=== PATIENT | female | born 1970 | race Caucasian/White ===

== ENCOUNTER 2017-05-21 15:17 | Emergency (ER) | payer MEDICAID, SELFPAY ==
[2017-05-21 15:18] VITALS: BP 144/94; PULSE 71; RESP 16; TEMP 36.3; O2SAT 97; BMI 47.8
--- NOTE | 2017-05-21 15:38 | RAD_ITS ---
STUDY: X-RAY - RIGHT KNEE REASON FOR EXAM: Female, 46 years old. Trauma, knee pain TECHNIQUE: 3 view(s) of the knee. COMPARISON: None. FINDINGS: Normal visualized distal femur. Normal visualized proximal tibia and fibula. Normal proximal tibiofibular articulation. There is mild degenerative arthrosis of the medial femorotibial compartment. There is mild degenerative arthrosis of the lateral femorotibial compartment. There is moderate degenerative arthrosis of the patellofemoral articulation. The soft tissue structures are unremarkable. RAD/Knee 3 Views IMPRESSION: Tricompartmental degenerative changes of the right knee. There is no evidence of fracture, dislocation, free intra-articular calcifications, or suprapatellar effusion. Electronically Signed: Leandro Horowitz MD at 16:53 EDT , Service support ,
--- NOTE | 2017-05-21 16:18 | RAD_ITS ---
STUDY: X-RAY - LEFT KNEE REASON FOR EXAM: Female, 46 years old. Bilateral knee pain following trauma TECHNIQUE: 3 view(s) of the knee. COMPARISON: None. FINDINGS: Status post total left knee replacement changes are seen with implants appearing in good position. There is no evidence of implant loosening or new associated fracture or dislocation. The soft tissue structures are unremarkable. RAD/Knee 3 Views IMPRESSION: Status post total left knee replacement changes seen with implants appearing in good position. There is no evidence of implant loosening or associated fracture or dislocation. Electronically Signed: Leandro Horowitz MD at 16:52 EDT , Service support ,
--- NOTE | 2017-05-21 16:31 | ED.VISSUMM ---
- ER Visit Summary Date of Service: 05/21/17 Chief Complaint: [Fall with injury to knees] History of Present Illness: The patient is a 46 F [presents to the emergency department after sustaining a fall this afternoon. Patient states that she was walking to work when she tripped over uneven sidewalk and fell injuring mostly her left knee but also her right knee. Patient is not sure if she twisted at all. Patient had to have 2 people help her up but she was able to bear some weight on her left leg. Patient denies striking her head or loss of consciousness. Patient is concerned because she has had a prior left knee replacement on left side.] Physical Examination: [HEENT-PERRLA, EOMI. Cranial nerves II through XII grossly intact. TMs clear. Mucous membranes moist. No adenopathy. Cardiovascular-regular rate and rhythm without murmur or ectopy Lungs-clear to auscultation, chest wall stable without crepitus or subcu emphysema Abdomen-normoactive bowel sounds, soft, nontender, no rebound or rigidity, no peritoneal signs. Extremities-intact ?4, normal range of motion, normal pulses, atraumatic]. Left knee-no effusion noted. No ecchymosis or bruising noted. Patient has some tenderness mostly over the proximal anterior tibia. Patient has pain with flexion extension at the knee and does not tolerate ligamentous exam. Exam also difficult due to patient's large body habitus. Valuation of the right knee-patient has some tenderness over the right knee diffusely just inferior to the patella and lateral. Again there is no ecchymosis or bruising noted or effusion. Patient has normal range of motion flexion extension of the knee and she is ligamentously stable on the right. Test Results: [Rays of the right and left knees were obtained. On my interpretation there are no fractures.] Emergency Department Course and Treatment: [Patient will be placed in a knee immobilizer with the left knee and given crutches. Patient was given 1 dose of OxyIR in the emergency department.] Treatment Plan: [Patient will be referred to orthopedic physician distribution dispatcher and will be given a prescription for 12 Percocet for severe pain.] Disposition: [Discharged to home in stable condition.] Impression: [Mechanical fall Contusion bilateral knees] This note was generated with [employer] dictation software. It may contain incorrect words, spelling, and punctuation that were not noted in review of the chart prior to signing ED Disposition - Plan for ED Patient: Chief Complaint: Lower Extremity Injury Referrals: Care Physician,No Primary [Primary Care Provider] -
--- NOTE | 2017-05-21 16:35 | ED.DCSUM_ITS ---
- ER Visit Summary Date of Service: 05/21/17 Chief Complaint: [Fall with injury to knees] History of Present Illness: The patient is a 46 F [presents to the emergency department after sustaining a fall this afternoon. Patient states that she was walking to work when she tripped over uneven sidewalk and fell injuring mostly her left knee but also her right knee. Patient is not sure if she twisted at all. Patient had to have 2 people help her up but she was able to bear some weight on her left leg. Patient denies striking her head or loss of consciousness. Patient is concerned because she has had a prior left knee replacement on left side.] Physical Examination: [HEENT-PERRLA, EOMI. Cranial nerves II through XII grossly intact. TMs clear. Mucous membranes moist. No adenopathy. Cardiovascular-regular rate and rhythm without murmur or ectopy Lungs-clear to auscultation, chest wall stable without crepitus or subcu emphysema Abdomen-normoactive bowel sounds, soft, nontender, no rebound or rigidity, no peritoneal signs. Extremities-intact ?4, normal range of motion, normal pulses, atraumatic]. Left knee-no effusion noted. No ecchymosis or bruising noted. Patient has some tenderness mostly over the proximal anterior tibia. Patient has pain with flexion extension at the knee and does not tolerate ligamentous exam. Exam also difficult due to patient's large body habitus. Valuation of the right knee -patient has some tenderness over the right knee diffusely just inferior to the patella and lateral. Again there is no ecchymosis or bruising noted or effusion. Patient has normal range of motion flexion extension of the knee and she is ligamentously stable on the right. Test Results: [Rays of the right and left knees were obtained. On my interpretation there are no fractures.] Emergency Department Course and Treatment: [Patient will be placed in a knee immobilizer with the left knee and given crutches. Patient was given 1 dose of OxyIR in the emergency department.] Treatment Plan: [Patient will be referred to orthopedic physician semiconductor wafers etcher stripper and will be given a prescription for 12 Percocet for severe pain.] Disposition: [Discharged to home in stable condition.] Impression: [Mechanical fall Contusion bilateral knees] This note was generated with [employer] dictation software. It may contain incorrect words, spelling, and punctuation that were not noted in review of the chart prior to signing ED Disposition - Plan for ED Patient: Chief Complaint: Lower Extremity Injury Referrals: Care Physician,No Primary [Primary Care Provider] -
--- NOTE | 2017-05-21 16:35 | ED.DEP ---
ED Disposition - Plan for ED Patient: Chief Complaint: Lower Extremity Injury Instructions: ED Contusion Lower Ext, ED Sprain Knee, ED Mechanical Fall Prescriptions: Oxycodone HCl/Acetaminophen [Percocet 5/325] 1 tab PO Q6H PRN PRN 3 Days #12 tab PRN Reason: Pain Referrals: Care Physician,No Primary [Primary Care Provider] - Lonnie Bolden MD [STAFF PHYSICIAN] - 5-7 Days
[2017-05-21] MEDS: oxyCODONE 5 MG Tablet PO (17:08)
== END 2017-05-21 17:39 | disposition home or self-care (01) ==
PROVIDERS: Emergency Provider Emergency Medicine
DX: S80.02XA Contusion of left knee, initial encounter (principal); S80.01XA Contusion of right knee, initial encounter; W01.0XXA Fall on same level from slipping, tripping and stumbling without subsequent striking against object, initial encounter; Y93.01 Activity, walking, marching and hiking; Y92.480 Sidewalk as the place of occurrence of the external cause; Y99.9 Unspecified external cause status; M19.90 Unspecified osteoarthritis, unspecified site; Z86.73 Personal history of transient ischemic attack (TIA), and cerebral infarction without residual deficits; Z96.652 Presence of left artificial knee joint; Z90.710 Acquired absence of both cervix and uterus
CPT/HCPCS: 73562; 99283

== ENCOUNTER 2017-06-19 12:34 | Emergency (ER) | payer MEDICAID, SELFPAY ==
[2017-06-19 12:35] VITALS: BP 135/104; PULSE 82; RESP 20; TEMP 37.1; O2SAT 97; BMI 47.8
--- NOTE | 2017-06-19 13:05 | ED.DCSUM_ITS ---
- ER Visit Summary Date of Service: 06/19/17 Chief Complaint: Asthma attack History of Present Illness: The patient is a 46 F has a history of asthma, CVA, reflex sympathetic dystrophy and PTSD and anxiety. Per her friend is given history patient was laughing yesterday which exacerbated her asthma attack. No hemoptysis. No history of PE or DVT. No fever. Physical Examination: Well-appearing middle-age female. BMI is 47. She does not look septic toxic she is in no distress. On room air she is 97%. She has a rescue dog sitting on her chest. HEENT exam unremarkable moist mucous membranes. Posterior pharynx unremarkable. Neck nontender no lymphadenopathy. Lungs good auscultation bilaterally. She is dry cough. There is no rales no rhonchi no wheezing. Breath sounds are equal and symmetrical. Heart regular rhythm rate 80s. Abdomen soft nontender normal bowel sounds no peritoneal signs. She is moving all 4 extremities. Calves are nontender without edema or cords. Neurologically she is awake she is answering questions. She is following commands. Test Results: None Emergency Department Course and Treatment: A large part of this is the patient' s anxiety. She is not actively wheezing. She will be given 1 DuoNeb aerosol treatment and oral prednisone. Then reassess. Treatment Plan: Is doing well at 1435. Be discharged home. Nebulizer machine at home. She also placed on prednisone 40 g a day for 1 week. Disposition: Discharge Impression: Acute anxiety Asthma flare This note was generated with [employer] dictation software. It may contain incorrect words, spelling, and punctuation that were not noted in review of the chart prior to signing ED Disposition - Plan for ED Patient: Chief Complaint: Shortness of Breath Referrals: Care Physician,No Primary [Primary Care Provider] -
[2017-06-19 13:10] VITALS: PULSE 95; RESP 20
[2017-06-19] MEDS: Ipratropium/Albuterol Sulfate 3 ML AMPUL.NEB INHALATION (13:10)
[2017-06-19] MEDS: predniSONE 20 MG Tablet 40 MG PO (13:15)
--- NOTE | 2017-06-19 14:40 | ED.DEP ---
ED Disposition - Plan for ED Patient: Disposition: Home or Assisted Living Chief Complaint: Shortness of Breath Instructions: ED Bronchitis Asthmatic Prescriptions: Prednisone [Deltasone] 40 mg PO DAILY 7 Days tab Referrals: Care Physician,No Primary [Primary Care Provider] - 3-5 Days if not improving Additional Instructions: Prednisone 40 g a day for 1 week. Usual nebulizer as needed. Follow-up with your doctor as needed.
[2017-06-19 14:49] VITALS: BP 147/109; PULSE 98; RESP 16; O2SAT 98; O2SAT 99
--- NOTE | 2017-06-19 14:56 | ED.DEP ---
ED Disposition - Plan for ED Patient: Disposition: Home or Assisted Living Chief Complaint: Shortness of Breath Instructions: ED Bronchitis Asthmatic Prescriptions: Prednisone [Deltasone] 40 mg PO DAILY 7 Days tab Referrals: Care Physician,No Primary [Primary Care Provider] - 3-5 Days if not improving Additional Instructions: Prednisone 40 mg a day for 1 week. Usual nebulizer as needed. Follow-up with your doctor as needed.
== END 2017-06-19 15:06 | disposition home or self-care (01) ==
PROVIDERS: Emergency Provider Emergency Medicine
DX: F41.9 Anxiety disorder, unspecified (principal); J45.901 Unspecified asthma with (acute) exacerbation; G90.50 Complex regional pain syndrome I, unspecified; F43.10 Post-traumatic stress disorder, unspecified; X58.XXXA Exposure to other specified factors, initial encounter; Y93.9 Activity, unspecified; Y92.9 Unspecified place or not applicable; Y99.9 Unspecified external cause status; Z79.899 Other long term (current) drug therapy; Z86.73 Personal history of transient ischemic attack (TIA), and cerebral infarction without residual deficits
CPT/HCPCS: 94640; 99282

== ENCOUNTER 2017-09-02 13:01 | Emergency (ER) | payer MEDICAID, SELFPAY ==
[2017-09-02 13:04] VITALS: BP 124/86; PULSE 104; PULSE 95; RESP 17; RESP 20; TEMP 36.7; O2SAT 97; O2SAT 99; BMI 50.3
[2017-09-02 13:30] LABS: Bedside Glucose 83 mg/dL (70-110)
--- NOTE | 2017-09-02 14:04 | RAD_ITS ---
STUDY: X-RAY CHEST REASON FOR EXAM: Female, 46 years old. Rib pain following a fall. TECHNIQUE: AP and lateral views of the chest. COMPARISON: None. FINDINGS: The lungs are clear and expanded. There is no demonstrated pleural abnormality. Normal size heart. Normal mediastinum and you. Normal visualized pulmonary arteries. Normal visualized aortic arch and descending thoracic aorta. Normal visualized thoracic spine. Normal visualized ribs, clavicles, and shoulders. There is no demonstrated abnormality of the visualized soft tissue structures of the upper abdomen. RAD/Chest PA and Lateral IMPRESSION: Normal x-ray examination of the chest. Electronically Signed: Hayden Petersen MD at 15:06 EDT Tel [phone], Service support ,
--- NOTE | 2017-09-02 14:04 | RAD_ITS ---
STUDY: X-RAY - LEFT ELBOW REASON FOR EXAM: Female, 46 years old. Left elbow pain following a fall. TECHNIQUE: 3 view(s) of the elbow. COMPARISON: None. FINDINGS: Normal visualized humerus, radius and ulna. Normal radiocapitellar and ulnotrochlear articulations. The soft tissue structures are unremarkable. RAD/Elbow min 3 Views IMPRESSION: Normal x-ray examination of the elbow. Electronically Signed: Hayden Petersen MD at 14:51 EDT Tel [phone], Service support ,
[2017-09-02 14:13] VITALS: BP 151/93; PULSE 90; RESP 18; O2SAT 98
[2017-09-02] MEDS: Morphine 4 MG/ML Syringe IV (14:15)
[2017-09-02] MEDS: Ondansetron 4 MG/2 ML Vial IV (14:15)
--- NOTE | 2017-09-02 14:30 | RAD_ITS ---
STUDY: X-RAY - LEFT ANKLE REASON FOR EXAM: Female, 46 years old. Left ankle pain following a fall. TECHNIQUE: 4 view(s) of the ankle. COMPARISON: None. FINDINGS: Normal visualized distal tibia and fibula. Normal medial and lateral malleoli. Normal tibiotalar articulation and ankle mortise. Normal visualized talus and calcaneus. The visualized subtalar, talonavicular, calcaneocuboid and tarsal articulations are normal. Mild degree of medial soft tissue swelling. RAD/Ankle min 3 Views IMPRESSION: Mild degree of medial soft tissue swelling. No fracture is seen. Electronically Signed: Hayden Petersen MD at 15:05 EDT Tel [phone], Service support ,
--- NOTE | 2017-09-02 15:35 | ED.VISSUMM ---
- ER Visit Summary Date of Service: 09/02/17 Chief Complaint: Left elbow and left ankle pain History of Present Illness: The patient is a 46 F complaining of left elbow and left ankle pain after mechanical fall today she tripped over her flip flop. She is also complaining of left chest wall pain. No head injury. No neck pain. No loss of consciousness. Physical Examination: Morbidly obese female who is in bed. She has no signs of head injury or head trauma. She has no C-spine tenderness. She has some left sided chest wall tenderness but clear lungs. Soft abdomen, nontender. She has tenderness over her left elbow but full range of motion. She has tenderness over the left ankle but no edema, full range of motion neurovascularly intact. Test Results: X-rays of the chest, ankle and elbow are negative. Emergency Department Course and Treatment: Patient requesting a walking boot for her ankle sprain. I tried to educate her about ankle sprains but she told me she has ankle sprains and she disagreed about my treatment plan. She demanded a walking boot. I will comply. Apparently there is an hour delay between her arrival and her getting her analgesia, we were quite busy, but she is quite angry about it. I try to plicate her, but she started screaming to the point where it became quite threatened, luckily she did not get out of bed quite easily I thought for sure she would hit me. I had security involved. I am unsure where this anger came from or why. However I will discharge to follow-up with PCP. Disposition: Charged Impression: Sprain. Elbow contusion. Chest wall contusion This note was generated with [employer] dictation software. It may contain incorrect words, spelling, and punctuation that were not noted in review of the chart prior to signing ED Disposition - Plan for ED Patient: Chief Complaint: Fall Referrals: Liana Andrade DO [Primary Care Provider] -
--- NOTE | 2017-09-02 15:41 | ED.DCSUM_ITS ---
- ER Visit Summary Date of Service: 09/02/17 Chief Complaint: Left elbow and left ankle pain History of Present Illness: The patient is a 46 F complaining of left elbow and left ankle pain after mechanical fall today she tripped over her flip flop. She is also complaining of left chest wall pain. No head injury. No neck pain. No loss of consciousness. Physical Examination: Morbidly obese female who is in bed. She has no signs of head injury or head trauma. She has no C-spine tenderness. She has some left sided chest wall tenderness but clear lungs. Soft abdomen, nontender. She has tenderness over her left elbow but full range of motion. She has tenderness over the left ankle but no edema, full range of motion neurovascularly intact. Test Results: X-rays of the chest, ankle and elbow are negative. Emergency Department Course and Treatment: Patient requesting a walking boot for her ankle sprain. I tried to educate her about ankle sprains but she told me she has ankle sprains and she disagreed about my treatment plan. She demanded a walking boot. I will comply. Apparently there is an hour delay between her arrival and her getting her analgesia, we were quite busy, but she is quite angry about it. I try to plicate her, but she started screaming to the point where it became quite threatened, luckily she did not get out of bed quite easily I thought for sure she would hit me. I had security involved. I am unsure where this anger came from or why. However I will discharge to follow -up with PCP. Disposition: Charged Impression: Sprain. Elbow contusion. Chest wall contusion This note was generated with [employer] dictation software. It may contain incorrect words, spelling, and punctuation that were not noted in review of the chart prior to signing ED Disposition - Plan for ED Patient: Chief Complaint: Fall Referrals: Liana Andrade DO [Primary Care Provider] -
--- NOTE | 2017-09-02 15:43 | ED.DCSUM_ITS ---
- ER Visit Summary Date of Service: 09/02/17 Chief Complaint: [] History of Present Illness: The patient is a 46 F [] Physical Examination: [] Test Results: [] Emergency Department Course and Treatment: [] Treatment Plan: [] Disposition: [] Impression: [] This note was generated with [employer] dictation software. It may contain incorrect words, spelling, and punctuation that were not noted in review of the chart prior to signing ED Disposition - Plan for ED Patient: Disposition: Home or Assisted Living Chief Complaint: Fall Instructions: ED Mechanical Fall Prescriptions: Naproxen [Naprosyn] 500 mg PO BID PRN #20 tab Referrals: Liana Andrade DO [Primary Care Provider] - 2 Days
[2017-09-02 16:08] VITALS: BP 137/99; PULSE 90; RESP 17
[2017-09-02 16:30] VITALS: BP 137/99; PULSE 90; RESP 17
== END 2017-09-02 16:34 | disposition home or self-care (01) ==
PROVIDERS: Emergency Provider Emergency Medicine
DX: S50.02XA Contusion of left elbow, initial encounter (principal); S20.212A Contusion of left front wall of thorax, initial encounter; S93.402A Sprain of unspecified ligament of left ankle, initial encounter; W01.0XXA Fall on same level from slipping, tripping and stumbling without subsequent striking against object, initial encounter; Y93.9 Activity, unspecified; Y92.89 Other specified places as the place of occurrence of the external cause; Y99.9 Unspecified external cause status; G90.50 Complex regional pain syndrome I, unspecified; G47.33 Obstructive sleep apnea (adult) (pediatric); F32.9 Major depressive disorder, single episode, unspecified; F41.9 Anxiety disorder, unspecified; E66.01 Morbid (severe) obesity due to excess calories; Z79.899 Other long term (current) drug therapy; Z86.73 Personal history of transient ischemic attack (TIA), and cerebral infarction without residual deficits
CPT/HCPCS: 71046; 73080; 73610; 82962; 96374; 96375; 99284; A4216; J2405

== ENCOUNTER → 2017-10-25 10:59 | Outpatient (CLI) | payer MEDICAID, SELFPAY ==
[2017-10-25 11:43] VITALS: PULSE 105; PULSE 110; PULSE 112; PULSE 116; PULSE 119; PULSE 120; PULSE 87; O2SAT 96; O2SAT 97; O2SAT 98
--- NOTE | 2017-10-28 10:01 | PCM.PSN.6M ---
PSN 6 Minute Walk Test - 6 Minute Walk Test 6 Minute Walk Test: 6 Minute Walk Test PSN:6-Minute Walk Test Start: 10/25/17 11:35 Freq: Status: Active Protocol: RESP.6MINW Document 10/25/17 11:43 TIERNEY (Rec: 10/25/17 11:46 TIERNEY [id number]) 6 Minute Walk Test Date Performed 10/25/17 Time Performed 11:20 Height 5 ft 4 in Weight: 266 lb Weight in Pounds [address]: Nishi Baldwin Assistive device used: None Pre-test Oxygen Delivery Method Room Air Pulse Ox (%) 97 Pulse Rate (60-100 beats/min) 105 H Dyspnea Summer Scale (0-10) 3 Exertion Summer Scale (6-20) 6 1st minute Oxygen Delivery Method Room Air Pulse Ox (%) 97 Pulse Rate (60-100 beats/min) 112 H 2nd minute Oxygen Delivery Method Room Air Pulse Ox (%) 98 Pulse Rate (60-100 beats/min) 119 H 3rd minute Oxygen Delivery Method Room Air Pulse Ox (%) 97 Pulse Rate (60-100 beats/min) 110 H 4th minute Oxygen Delivery Method Room Air Pulse Ox (%) 97 Pulse Rate (60-100 beats/min) 120 H 5th minute Oxygen Delivery Method Room Air Pulse Ox (%) 98 Pulse Rate (60-100 beats/min) 110 H 6th minute Oxygen Delivery Method Room Air Pulse Ox (%) 96 Pulse Rate (60-100 beats/min) 116 H Dyspnea Summer Scale (0-10) 5 Exertion Summer Scale (6-20) 14 Post-test Oxygen Delivery Method Room Air Pulse Ox (%) 98 Pulse Rate (60-100 beats/min) 87 Full Laps Walked 11 Partial Lap, Number of Tiles Walked 26 Total Distance Walked (ft) 675 - Interpretation Interpretation: The patient ambulated 675 feet over the course of 6 minutes beginning on room air without assistive devices or breaks. Pretesting oxygen saturation was noted to be 97% on room air. With ambulation, the kinga oxygen saturation was 96%. There was no significant exertional oxygen desaturation. - Recommendations Recommendations: There is no indication for the use of supplemental oxygen at this time.
== END ==
PROVIDERS: Visit Provider Nurse Practitioner Acute Care
DX: R09.02 Hypoxemia (principal)
CPT/HCPCS: 94618

== ENCOUNTER 2018-01-20 08:30 | Outpatient (RCR) | payer MEDICAID, SELFPAY ==
--- NOTE | 2018-01-20 09:05 | BH.SGPN.GN ---
Behaviors/Verbalizations/Mental Status: [] Eye contact is good. Motor activity is appropriate. Appearance is disheveled. Speech is Appropriate. Mood is depressed. Affect is flat. Thoughts are linear and logical. No evidence of psychosis. Client Response/Progress/Benefit: [] Pt spoke only when prompted. Shared with the group that she is in the program to work on symptoms related to trama. Attentive during group. Benefited from group support and encouragement. No progress noted as this is pt's first day. Will continue in IOP to stabilize mood, improve functioning, and prevent decompensation. Narrative Note: []
--- NOTE | 2018-01-20 10:15 | BH.SGPN.GN ---
Behaviors/Verbalizations/Mental Status: [] Eye contact is good. Motor activity is appropriate. Appearance is dischevled. Speech is Appropriate. Mood is depressed. Affect is flat. Thoughts are linear and logical. No evidence of psychosis. Client Response/Progress/Benefit: [] Pt did not participate in group discussion or activity. Attentive and taking notes during group discussion on the role of fear on mental health and how failure impacts motivation and mental health. Took notes on how failure often leads to thinking such as; I'm not good enough, I've let other down, failure is a reflection of who I am, and feelings of being dumb or inadequate. Attentive during further group discussion on how fear of failing can impact behaviors, choices, and mental health. Limited engagement in group today however could be expected as this was first day. Will continue in IOP to maintain safety, improve functioning, and prevent decompensation. Narrative Note: []
--- NOTE | 2018-01-20 11:16 | BH.SGPN.GN ---
Behaviors/Verbalizations/Mental Status: [Client alert and oriented. Appearance is disheveled -dressed in pajamas. Eye contact fair. Motor activity restless - distracted by service dog, fidgeting in seat, letting dog under shirt. Speech appropriate, soft. Affect congruent. mood anxious, euthymic. Thoughts linear, logical, no signs of hallucinations or delusions.] Client Response/Progress/Benefit: [Client receptive of session, engaged with encouragement and provided relevant input to the discussion despite expressed anxieties about being in a group environment. Reflected with group on barriers and supports identified in challenge activity during previous session and connected this with fear of failure in dx life. Identified how others? opinions impact ability to make decisions or can lead to second-guessing. Client willing to complete reflection worksheet aimed at identifying how fear of failure is currently holding her back as well as barriers in overcoming this. Indicated currently fears failing at ?working outside the home? and reports current barriers include: feeling stupid, past failures in attempting to do so, fear of letting others down, lack of belief in self. Benefitted from working with group to identify strategies for overcoming fear of failure. Progress in levels of engagement in group compared to previous session, as well as ability to distinguish one step she could take to begin overcoming fears. Plans to work on improving prioritizing self-care as goal for today. Recommended continued tx to encourage use of identified skills, improve sx management, and prevent decompensation. ] Narrative Note: []
--- NOTE | 2018-01-20 14:51 | BH.COMM ---
Communication Note - Communication with Client Communication Note: Therapist met with client to complete intake paperwork, build rapport, and assess for any changes in mental health status since intake interview. Client denies any significant changes, denies active SI, plan, or intent on this date.
--- NOTE | 2018-01-20 14:52 | BH.COMM ---
Communication Note - Communication with Client Communication Note: Therapist met with client briefly after group to build rapport and discuss adjustment to first day in program. Client shared group went well for her despite some anxiety in being in the group environment. Expressed finding the topic to be helpful and was able to connect with information provided. Client indicates some concerns in completing group activities due to limited mobility and was receptive of therapist ensure accommodations will be made for client when possible. Client indicates she plans to attend IOP on Saturday and Saturday of this week.
--- NOTE | 2018-01-22 09:10 | BH.SGPN.GN ---
Behaviors/Verbalizations/Mental Status: [] Eye contact is good. Motor activity is appropriate. Appearance is disheveled. Speech is Appropriate. Mood is depressed. Affect is congruent. Thoughts are linear and logical. No evidence of psychosis. Reviewed daily check in sheet and no reports of suicidal ideations or intent. Client Response/Progress/Benefit: [] Pt was an active participant in group discussion. Emotion for today is overwhelmed. Shared with the group that she completed a nerve test yesterday on one of her legs. Reports that the results were concerning. Reports that she completed other tests however will not get the results for a couple months. Discussed emotions related to fear of the unknown which group discussed. Pt reported insight that if she was not careful she would ruminate or dwell on medical issues and catastrophize her unknown results. She choose to distract herself with walking around local store and spending time with which she reports was more beneficial. Also used some thoughts challenging and reframing. Reports a positive that occurred yesterday which is that her daughter is going to come to [place] for the holidays. Progress noted per pt report. Benefited from group support, feedback, and praise. Will continue in IOP to prevent decompensation and stabilize mood. Narrative Note: []
--- NOTE | 2018-01-22 10:06 | BH.SGPN.GN ---
Behaviors/Verbalizations/Mental Status: []Client alert and oriented, neatly dressed and groomed. Eye contact good. Motor activity appropriate. Speech within normal limits. Affect constricted, mood dysthymic. Thoughts linear, logical, no signs of hallucinations or delusions. Client Response/Progress/Benefit: []Client responded well to session, facial expressions showed client struggles with the concept of boundaries. Client reported setting boundaries is ?really hard for me? as client reported belief she should not be allowed to set boundaries. After discussion with the group, client acknowledged that setting boundaries promotes self-care and reduces mental health symptoms. Client shared there are barriers to setting boundaries such as ?upbringing,? lack of trust, and guilt. Client helped the group identify the pros and cons of the different boundaries (porous, rigid, flexible). Client reported having a hard time identifying which style she uses, but she acknowledges a hard time saying no to her family as client stated feeling responsible for taking care of everyone. Client appeared to benefit from gaining insight to how boundaries impact mental health and relationships. Client to continue IOP to prevent decompensation and reduce severity of mental health symptoms.
--- NOTE | 2018-01-22 11:05 | BH.SGPN.GN ---
Behaviors/Verbalizations/Mental Status: []Client alert and oriented, neatly dressed and groomed. Eye contact good. Motor activity appropriate. Speech within normal limits. Affect constricted, mood dysthymic. Client reported difficulty understanding the directions and identifying personal examples. no signs of hallucinations or delusions. Client Response/Progress/Benefit: []Client responded well to session, client reported struggling with the topic, but receptive to help from therapist. Client explored how her boundary setting style impacts her mental health. Client stated she was taught to not have boundaries as a child and was expected to ?take care of everyone.? Client reported now she struggles with trust and has variable boundaries which can cause client to ?shut down or share too much.? Client stated she would like to become more flexible. Client helped the group identify strategies to improve setting boundaries such as starting with small boundaries, being direct, and giving herself permission to focus on self-care. Client appeared to benefit from learning ways to improve boundary setting. Progress limited as client recently started IOP. Client to continue IOP to increase mood stability and reduce negative thinking patterns.
--- NOTE | 2018-01-23 09:05 | BH.SGPN.GN ---
Behaviors/Verbalizations/Mental Status: []Client alert and oriented, casual dress. Eye contact good. Motor activity appropriate. Speech tangential, pessimistic. Affect flat, mood dysthymic, irritable. Thoughts linear, logical, no signs of hallucinations or delusions. Reviewed client?s symptom tracker, no risk for suicidal ideation, plan, or intent as of 01/23/18. Client Response/Progress/Benefit: []Client responded well to session, appeared receptive to feedback from peers as shown by head nodding. Client reports feeling ?anxious? this morning due to recent family stressors. Client stated she had to kiln puller yesterday after talking to her sister on the phone because client was crying so hard. Client reported ?I tried to set the boundary and she was just so mean?I don?t get how it works.? Client received supportive statements from peers who have set boundaries with family members in the past. Client shared she continues to struggle with the idea that people can change years? worth of negative thoughts and beliefs. The group attempted to gently challenge client. Client identified making it into group today and taking time for her self-care and mental health as positives. Client appeared to benefit from gaining support from peers and receiving different perspectives. Client to continue IOP to prevent decompensation, reframe negative thoughts, and increase mood stability.
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
--- NOTE | 2018-01-23 14:51 | BH.MTP_ITS ---
Master Treatment Plan - Patient Information Program Physician:: Charlotte Riley Primary Therapist:: Jeri Zaidi - Psychiatric Diagnoses Psychiatric Diagnoses:: PTSD; Diagnosis Code(s):: F43.10 - Estimated LOS Estimated LOS (in weeks):: 6 Problem/Goal #1 - Problem/Goal #1 Stated Goal:: Client will reduce intensity of PTSD symptoms while increasing ability to function on a daily basis. Description of Barriers: Client recently moved to [place] from [facility] and is working to establish a support network in [place]. Client reports ongoing medical issues and physical limitations as a potential barrier to treatment. Client and her were homeless in August, and although they have a residence currently, they continue to struggle financially. Client shared having rigid boundaries at times due to past bad experiences and PTSD. Lastly, due to client's complex trauma history and long-term negative core beliefs of self, client may struggle with challenging and reframing negative thoughts. Functional Impact: Client is a 47 year-old female, who at admission r eported a history of PTSD and significant trauma since childhood. Client referred to [facility] by outpatient therapist due to worsening anxiety and trauma triggers which were resulting in increased panic attacks, isolation, and reduced sleep. Client currently endorses nightmares, ruminations, and flashbacks. Clients reports difficulty completing self-care and ADLs due to mental health and medical issues. Client reports negative thoughts of self and guilt. Based on worsening symptoms interfering with functioning and limited benefit from weekly counseling, client admitted to [facility] level of care. Goal Relevant Strengths/Supports: Client is resilient and reports willingness to get better. Client identifies her as a primary mental health support and sees Windy Rome at [facility] for outpatient therapy. Client has a service dog who helps client cope with triggers and life stressors. Client reports her levi is a positive force in her life and shared her levi community is supportive to her mental health. - Objectives Objective #1 Stated Objective: Client will create a Trigger Action Plan which will include 2- 3 warning signs and 2-3 coping skills to help client manage PTSD symptoms. Interventions: Therapist will provide psychoeducation on PTSD, complex trauma, and how trauma impacts overall biopsychosocial functioning. Therapist will teach client grounding techniques and help client identify triggers. Therapist will complete a Trigger Action Plan with client to give client a concrete tool with various strategies to help client manage PTSD triggers and symptoms. Discharge Criteria: Client will have accomplished this goal when she has completed and reports implementing her Trigger Action Plan to manage PTSD symptoms and triggers. Target Date: 03/03/18 Review Date: 02/19/18 Status: open Objective #2 Stated Objective: Client will identify 2-3 anxiety producing thoughts that tends to ruminate on, and reduce this by increasing use of self-awareness, thought challenging, and calming strategies. Interventions: Through individual and group counseling will help client identify internal struggles client faces and provide education on cognitive distortions, thought challenging and coping strategies for decreasing anxiety and rumination. Discharge Criteria: Client will have achieved this objective when able to verbalize anxiety-producing thoughts and identify 2-3 ways to challeng and replace, as well as cope with them. Client will be able to use individualized coping skills and strategies on a daily basis. Target Date: 03/03/18 Review Date: 02/19/18 Status: open Problem/Goal #2 - Problem/Goal #2 Stated Goal:: Client will reduce anxiety and hypervigilence to improve overall functioning. Description of Barriers: Client recently moved to [place] from [facility] and is working to establish a support network in [place]. Client reports ongoing medical issues and physical limitations as a potential barrier to treatment. Client and her were homeless in August, and although they have a residence currently, they continue to struggle financially. Client shared having rigid boundaries at times due to past bad experiences and PTSD. Lastly, due to client's complex trauma history and long-term negative core beliefs of self, client may struggle with challenging and reframing negative thoughts. Functional Impact: Client is a 47 year-old female, who at admission reported a history of PTSD and significant trauma since childhood. Client referred to [facility] by outpatient therapist due to worsening anxiety and trauma triggers which were resulting in increased panic attacks, isolation, and reduced sleep. Client currently endorses nightmares, ruminations, and flashbacks. Clients reports difficulty completing self-care and ADLs due to mental health and medical issues. Client reports negative thoughts of self and guilt. Based on worsening symptoms interfering with functioning and limited benefit from weekly counseling, client admitted to [facility] level of care. Goal Relevant Strengths/Supports: Client is resilient and reports willingness to get better. Client identifies her as a primary mental health support and sees Windy Rome at [facility] for outpatient therapy. Client has a service dog who helps client cope with triggers and life stressors. Client reports her levi is a positive force in her life and shared her levi community is supportive to her mental health. - Objectives Objective #1 Stated Objective: Client will reduce DSM-5 scores for anxiety by learning 2-3 coping strategies. Interventions: Through group and individual sessions, therapist will help client gain awareness of physical, psychological, and emotional warning signs for anxiety. Therapist will use CBT and DBT techniques to teach client strategies to manage her anxiety and challenge cognitive distortions that reinforce ruminations. Discharge Criteria: Client will have accomplished this objective when her DSM-5 symptoms for anxiety show a decrease and client can report using at least 2 coping skills for anxiety. Target Date: 03/03/18 Review Date: 02/19/18 Status: open Objective #2 Stated Objective: Client will be able to define hypervigilance and how it is related to anxiety. Client will be able to identify 2-3 examples of times she has experienced hypervigilance. Client will be able to identify 2-3 self-talk statements and coping skills to manage hypervigilance. Interventions: Therapist will help client explore triggers for hypervigilance and develop positive, grounding self-talk messages to combat anxiety. Therapist will teach client distress tolerance skills and mindfulness skills. Discharge Criteria: Client will be able to define hypervigilance and how it relates to anxiety. Client will be able to identify 2 ways to combat and manage symptoms. Target Date: 03/03/18 Review Date: 02/19/18 Status: open
--- NOTE | 2018-01-24 10:20 | BH.SGPN.GN ---
Behaviors/Verbalizations/Mental Status: []Pt eye contact good, casually dressed, motor activity appropriate, speech normal rate and tone, mood euthymic, congruent affect, thoughts linear and intact, no evidence of delusions or hallucinations. Client Response/Progress/Benefit: []Pt listened attentively to peers and contributed to discussion at times. Pt connected with that quote that she can think of several situations in which she thought she communicated to her , but realized she was not clear or specific enough. Pt related to others that assumptions will often lead to misinterpretations and often increased problems. Pt added her thoughts to discussion about the four different types of communication (passive, passive-aggressive, aggressive, and assertive). Pt able to identify benefits and costs to each type of communication. Pt identified when in person she most often communicates passively because doesn't want to upset others. Pt stated she can be assertive when on the phone because it's easier when not seeing a person. Pt seemed to benefit from increased awareness of the different types of communication as well as learning about benefits and costs of each style. Narrative Note: []
--- NOTE | 2018-01-24 11:25 | BH.SGPN.GN ---
Behaviors/Verbalizations/Mental Status: []Eye contact is good. Motor activity is appropriate. Appearance is casual. Speech is Appropriate. Mood is dysthymic. Affect is congruent. Thoughts are linear and logical. No evidence of psychosis. Client Response/Progress/Benefit: []Pt listened attentively to others, took notes throughout session, and contributed at times to discussion. Pt reported it's important to be specific when communicating because if not things can get easily misconstrued. Pt shared if her is looking at his phone and she tells him something then often her will say he doesn't remember that she told him anything. Pt able to recognize with assistance it would be helpful if she makes sure her is looking at her when she is communicating. Pt reported it's also important to stop and think before communicating because sometimes heightened emotions can impact ability to communicate effectively. Pt seemed to benefit from increased awareness of strategies that can help improve communication. Pt to continue IOP level of care to maintain gains, improve daily functioning, and prevent decompensation. Narrative Note: []
--- NOTE | 2018-01-24 16:15 | BH.COMM ---
Communication Note - Communication with Client Communication Note: due to unforseen circumstances psychiatrist was unable to make it into program to complete psychiatric evaluation today
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
[2018-02-21 14:53] VITALS: BP 113/82; PULSE 82; RESP 16
== END 2018-01-24 23:59 ==
LOC: BHIOP 08:30
PROVIDERS: Visit Provider Psychiatry & Neurology Psychiatry
DX: F33.1 Major depressive disorder, recurrent, moderate (principal)
CPT/HCPCS: H0035; H2012; H2020; T1002; 90837

== ENCOUNTER 2018-01-29 09:00 | Outpatient (RCR) | payer MEDICAID, SELFPAY ==
[2017-10-23 10:17] VITALS: BMI 46.0
--- NOTE | 2018-01-29 09:02 | BH.SGPN.GN ---
Behaviors/Verbalizations/Mental Status: [] Pt eye contact good, casually dressed, motor activity appropriate, speech normal rate and tone, mood anxious and depressed, congruent affect, thoughts linear and intact, no evidence of delusions or hallucinations. Reviewed client?s symptom tracker, no signs of suicidal ideation, plan, or intent as of today. Client Response/Progress/Benefit: [] Patient listened attentively to others and share her thoughts and feelings. Client reported she was able to get her car finally fixed which took her a lot of self advocating in order for her to get assistance from [facility]. Client shared one stressor is finding out from her neurologist that there is a nerve in her back that is decompressing and needs another surgery. Client reported however when she went to her back doctor she felt dismissed and not heard by the doctor. Client shared she plans to request a new doctor and get a second opinion. Client expressed anxiety towards having to potentially have another back surgery. Client seem to benefit from support by peers as well as expressing thoughts and feelings. Despite getting negative news about her physical health patient showed progress has been able to identify at least one positive in her life. Client to continue IOP level of care to decrease anxiety, increase use of healthy coping skills, and prevent decompensation. Narrative Note: []
--- NOTE | 2018-01-29 10:05 | BH.SGPN.GN ---
Behaviors/Verbalizations/Mental Status: []Client alert and oriented. Wearing pjs, but appeared well groomed. Eye contact good. Motor activity appropriate. Speech within normal limits. Affect constricted, mood anxious. Thoughts linear, logical, no signs of hallucinations or delusions. Client Response/Progress/Benefit: []Client responded well to session, quiet, but vocal when prompted. Client reported taking action is important for improving mental health, but ?sometimes it?s easier to just give up.? Client shared there are numerous barriers that prevent people from taking action such as mental health and fear. Client identified things holding client back from improved mental wellness such as finances, anxiety and worry, lack of self-care, negative self-talk, guilt, and low self-esteem. Client stated overcoming these things holding her back would improve client?s mental health because it would increase self-confidence and improve functioning. Client engaged in the activity symbolizing the ability to let go of the things holding client back. Client appeared to benefit from gaining awareness of the barriers holding client back from increased mental wellness. Progress noted in client?s increased self-awareness of personal barriers and negative self-talk. However, client continues to report negative core beliefs and difficulty managing mental health symptoms without external support. Client to continue IOP to prevent decompensation and improve functioning.
--- NOTE | 2018-01-29 11:08 | BH.SGPN.GN ---
Behaviors/Verbalizations/Mental Status: []Client alert and oriented. Wearing pjs, but appeared well groomed. Eye contact good. Motor activity appropriate. Speech within normal limits. Affect constricted- facial expressions suggested confusion at times, mood euthymic. Thoughts linear, logical, no signs of hallucinations or delusions. Client Response/Progress/Benefit: []Client responded well to session, engaged in discussion. Client appeared to connect with the different zones of change and acknowledged change does not happen in one?s comfort zone. Client began creating a 30-day action plan to reduce the guilt client feels from engaging in self-care. Client stated her motivator for this is wanting to focus on her mental health. Client identified small goals to help her achieve reduced guilt such as identifying positives of self-care and practicing setting boundaries. Client appeared to benefit from creating action steps to achieve her goal of reduced guilt for engaging in self-care. Client progressing with acknowledging how guilt prevents client from improving her mental health and self-care. Client continues to struggle with combating negative thoughts that reinforce low self-esteem and guilt.
--- NOTE | 2018-01-30 10:10 | BH.SGPN.GN ---
Behaviors/Verbalizations/Mental Status: [] Pt eye contact good, casually dressed, motor activity appropriate, speech normal rate and tone, mood dysthymic, congruent affect, thoughts linear and intact, no evidence of delusions or hallucinations. Client Response/Progress/Benefit: []Pt listened attentively to peers and contributed to discussion at times. Pt agreed with peers that personal growth will not occur overnight, it takes time and effort for positive change and growth to occur. Pt shared using supports is an example of a positive force because can help one move forward. Pt worked cooperatively with peers during activity, verbalized her thoughts and ideas. Pt connected focusing on goals to be positive force that helped the group be successful and could also be used in daily life to progress. Pt seemed to benefit from learning about impact of positive and negative forces. Narrative Note: []
--- NOTE | 2018-01-30 11:12 | BH.SGPN.GN ---
Behaviors/Verbalizations/Mental Status: [] Pt eye contact good, casually dressed, motor activity appropriate, speech normal rate and tone, mood dysthymic, congruent affect, thoughts linear and intact, no evidence of delusions or hallucinations. Client Response/Progress/Benefit: [] Client listened attentively to others and contributed to discussion. Client identified her positive forces to include: Ewelina, , her dog, mandaen family, being understanding and self efficacy. Client reported her negative forced to include distractions, emotional trauma, fear, anxiety, nightmares, money, physical and mental health issues, and difficulty setting boundaries. Client reported she is just now starting to notice progress in her self with her ewelina being the strongest force at the moment. Client reported her goal is to continue attending IOP groups and practice the skills she learns. Seemed to benefit from increased awareness of her positive-negative forces. Client to continue IOP level care to maintain gains, decrease depression, prevent decompensation. Narrative Note: []
--- NOTE | 2018-01-30 15:08 | BH.MDN_ITS ---
Multi-Disciplinary Note - Note 60-min Individual Time Started:: 12:25 Date: 01/30/18 Purpose of session/treatment goals addressed:: The purpose of this session was to address current stressors, triggers, and symptoms. Another goal was to create a Trigger Action Plan and review grounding coping strategies. Eye Contact:: Good Motor Activity:: Restless Appearance:: Casual - hygiene was good, but client wearing pjs Speech:: Appropriate Mood:: Anxious Affect:: Constricted Thoughts:: Circular, No evidence of hallucinations/delusions noted Staff Interventions:: Therapist used active listening and open-ended questions to gather information on client's current stressors, symptoms, and recent PTSD trigger. Therapist taught client different grounding strategies to help client more effectively cope with triggers and bring herself back to the present mome nt. Therapist provided psychoeducation on how the brain is impacted by trauma. Therapist created a Trigger Action Plan for client to use when she experiences a trigger and helped client complete it. Therapist asked client to create a personal grounding/calming mantra for homework. Client Response:: Client responded well to session, open to meeting with therapist and completing a Trigger Action Plan. Client stated she had a nightmare last night which was triggered by her touching her. Client almost cancelled her session today due to the anxiety it caused client. Client acknowledged coming to IOP helped lessen her anxiety from a 8 out of 10 in the morning to a 6 out of 10 after group. Client identified her PTSD triggers and how she responds when experiencing a trigger. Client and therapist discussed how trauma impacts the brain to help client gain awareness to why she responds the way she does. Client learned grounding techniques and practiced 5-4-3-2-1. Client shared her dog, her , certain smells, a bible verse, and certain music all act as grounding tools for client. Client stated the Trigger Action Plan could be helpful for her and she plans to share it with her . Client would like to continue working on the plan during IOP and continue learning more about trauma and how to manage her triggers. Risks/Concerns:: Client denies suicidal ideation, plan, and intent as of 01/30/18. Client future oriented sharing she is excited for her daughter to visit for [place]. Progress Toward Goals/Plan:: Client appears to be progressing toward treatment goals as evidenced by her report of utilizing coping skills to manage her PTSD triggers. Client called into IOP this morning and almost cancelled due to a recent trigger, but she attended and per client's report her anxiety when down which demonstrates progress. Client shared she often wears a mask and can minimize her symptoms when around others, which could hinder progress and will continue to be monitored. Client to continue IOP to increase mood stability and application of healthy coping skills. Therapist to contact client's outpatient therapist, Windy Rome for continuity of care. Time Stopped:: 13:25
--- NOTE | 2018-01-31 10:16 | BH.SGPN.GN ---
Behaviors/Verbalizations/Mental Status: [Client maintained good eye contact, casually dressed, motor activity appropriate, speech normal rate and tone, mood anxious, affect congruent, thoughts linear, logical, - some evidence of self-deprication/ruminating negative thoughts no evidence of delusions or hallucinations.] Client Response/Progress/Benefit: [Client attentive and well engaged in both discussion and activity portions. She did well to contribute to the discussion and asked questions as to how a ?fixed mindset? is developed. Client inquired how to challenge and change negative core beliefs and discussion examples of ways past experiences have contributed to her current fixed mindset thoughts of ?I am not worth it?. Client identified that this mindset has kept her from trying things and caused her to avoid. She did well to combat this mindset when engaging in the activity portion by challenging herself to complete the challenge with the group despite fears that she would not be able to stand for that long or be a positive contributor. Client appeared to benefit from gaining awareness of the ways fixed thoughts have limited growth and kept her stuck. Progress noted in client improved ability to identify small successes and begin to challenge disqualifying statements or negative thoughts. Recommended continued IOP to increase identification of distortions and ability to apply thought challenging skills, as well as prevent decompensation.] Narrative Note: []
--- NOTE | 2018-01-31 11:15 | BH.SGPN.GN ---
Behaviors/Verbalizations/Mental Status: [Client maintained good eye contact tearful as she processed thoughts with group, casually dressed, motor activity appropriate, speech normal rate and tone, mood anxious, depressed, affect congruent, thoughts linear, logical, no evidence of delusions or hallucinations.] Client Response/Progress/Benefit: [Client active participant and contributed to discussion AEB client providing some feedback to group, reflecting upon materials discussed, and asking questions throughout. Willing to participate growth mindset reflection activity and indicated difficulties in challenging her fixed thoughts, discussing that she has told herself these things for so long it is hard not to believe them. Identified the impact of others on her negative core beliefs. Client receptive of and appeared to benefit from group support and feedback. She indicated connecting with the idea of slowing beginning to take back control and no longer allow others to dictate her emotions. Client replaced fixed thought of I?m not good enough? to ?I am learning to love myself?. Progress noted in ability to connect with materials discussed and begin challenging negative thinking patterns. Continued IOP to prevent decompensating and continue to promote healthy coping behaviors] Narrative Note: []
--- NOTE | 2018-02-03 09:10 | BH.SGPN.GN ---
Behaviors/Verbalizations/Mental Status: [] Eye contact is good. Motor activity is appropriate. Appearance is disheveled. Speech is Appropriate. Mood is euthymic. Affect is full. Thoughts are linear and logical. No evidence of psychosis. Reviewed daily check in sheet and no reports of suicidal ideations or intent. Client Response/Progress/Benefit: [] Pt was an active participant in group discussion. Emotion for today is tired. Shared with the group that she had an overall positive weekend. Talked at length about self-care strategies and positive interactions with support. Reports that she experienced a trauma trigger while eating out. She was assertive and asked the restaurant staff to switch the song. When this was not possible she left however was not angry or upset. She was able to identify a trigger and manage it in an appropriate way. Also did not allow this trigger to dictate her mood for the rest of the day. Progress noted per pt report. Benefited from group support and encouragement. Will continue in IOP to prevent decompensation, increase daily functioning, and decrease isolative behaviors. Narrative Note: []
--- NOTE | 2018-02-03 10:15 | BH.SGPN.GN ---
Behaviors/Verbalizations/Mental Status: []Client alert and oriented, neatly dressed and groomed. Eye contact good. Motor activity appropriate. Speech within normal limits. Affect constricted, mood anxious. Thoughts linear, logical, no signs of hallucinations or delusions. Client Response/Progress/Benefit: []Client responded well to session, contributing to discussion. Client connected with the topic of cognitive distortions sharing ?I?m very very hard on myself? which has increased client?s mental health symptoms. Client agreed with peers that cognitive distortions are ?altered thoughts? that try to convince a person of something that is not true. Client helped the group identify the different types of cognitive distortions. Client reported past experiences and upbringing can impact how many cognitive distortions a person has. Client shared she often uses personalization and mind-reading which lead to feeling guilty, sad, and on edge. Client appeared to benefit from increasing awareness of how cognitive distortions negatively impact client?s mental health. Client to continue IOP as she has progressed with implementing healthy coping skills, but she continues to experience nightmares.
--- NOTE | 2018-02-03 11:17 | BH.SGPN.GN ---
Behaviors/Verbalizations/Mental Status: []Client alert and oriented, neatly dressed and groomed. Eye contact good. Motor activity appropriate. Speech within normal limits. Affect full-laughing, mood euthymic. Thoughts linear, logical, no signs of hallucinations or delusions. Client Response/Progress/Benefit: []Client responded well to session, participating in activity and discussion. Client engaged in group activity that demonstrated the effort it takes to challenge and change cognitive distortions. Client reported ?sometimes the effort is time.? Client stated the group reminded client that ?we don?t always know we are using distortions? which makes awareness important. Client able to identify, challenge, and reframe example cognitive distortions in the group. Client took notes as the group identified strategies to combat cognitive distortions such as being aware of negative self-talk. Client appeared to benefit from learning about cognitive distortions and strategies to combat negative thinking. Client to continue IOP as she reports implementing healthy coping skills, but she continues to frequent symptoms of PTSD.
--- NOTE | 2018-02-03 14:29 | BH.MDN_ITS ---
Multi-Disciplinary Note - Note 60-min Individual Time Started:: 12:35 Date: 02/03/18 Purpose of session/treatment goals addressed:: The purpose of this session was to address current symptoms, stressors, and application of coping skills. Other topics included: grounding strategies to manage triggers and cognitive distortions. Eye Contact:: Fair Motor Activity:: Restless Appearance:: Neat Speech:: Tangential Mood:: Euthymic, Anxious Affect:: Congruent Thoughts:: Circular, No evidence of hallucinations/delusions noted Staff Interventions:: Therapist used open-ended questions and active listening to explore client's current stressors, symptoms, and application of coping skills. Therapist used strengths perspective to empower client on her self- advocacy and use of her Trigger Action Plan. Therapist provided psychoeducation on client's diagnoses. Therapist provided client a safe space to verbalize process recent triggers and listened to client's concerns. Therapist used in the moment thought challenging to help client see different perspectives. Therapist gave client a thought log to begin tracking negative thoughts and challenging them. Client Response:: Client responded well to session, open to meeting with ther apist. Client shared she used her Trigger Action Plan over the weekend and shared her plan with her . Client reported using the 5-senses to help client feel ground. Client stated it worked and didn't work as client reported improved tolerance of the stressful situation by not engaging in avoidance behaviors or having a panic attack, but she still experienced anxiety when triggered. Client and therapist discussed other ways to manage triggers such as removing herself temporarily by going outside or somewhere quiet. Client's stated her grounding mantra is I'm worth it. Client stated having nightmares again this weekend which client reports belief the nightmares are caused by a pain medication. Client stated she stopped taking it and therapist encouraged client to discuss this with her doctor. Client shared psychiatry concerns and had questions about her diagnoses. Therapist and client discussed criteria for PTSD and MDD. Client reported ongoing frustrations with people who respond ignorantly to her service dog. Client shared she sometimes has a hard time seeing if I'm seeing it in a different way than it actually is. Client receptive to begin thought log to help client recognize negative thoughts and start challenging them. Risks/Concerns:: Client denies suicidal ideation, plan, and intent as of 02/03/18. Progress Toward Goals/Plan:: Client demonstrating progress towards treatment goals as shown by her report of utilizing her Trigger Action Plan to manage PTSD and anxiety. Additionally, client stated she has increased self-awareness and feels supported in group which demonstrates progress. Client continues to struggle with ongoing anxiety associated with her PTSD as well as coping with external stressors. Client shared ongoing health issues and dealing with people's response to her service dog as contributors to client's anxiety and irritability. Client starting to recognize cognitive distortions during session, but she continues to struggle with challenging and replacing negative self-talk messages. Client reported some psychiatry questions and concerns which therapist is to discuss with treatment team. Client to continue IOP to increase emotional regulation and mood stability. Time Stopped:: 13:45
--- NOTE | 2018-02-03 15:56 | BH.COMM ---
Communication Note - Communication with Client Communication Note: Therapist attempted to call client's outpatient counselor, Kari Rome, at [facility] regarding client care and updates. Therapist unable to reach Kari and left a message.
--- NOTE | 2018-02-04 09:10 | BH.SGPN.GN ---
Behaviors/Verbalizations/Mental Status: [] Eye contact is good. Motor activity is appropriate. Appearance is neat. Speech is Appropriate. Mood is depressed. Affect is flat. Thoughts are linear and logical. No evidence of psychosis. Reviewed daily check in sheet and no reports of suicidal ideations or intent. Client Response/Progress/Benefit: [] Active participant in group discussion. Emotion for today is blah. Shared that she struggled to get out of bed this AM and attend group therapy. Reports strong urge and desire to isolate. Was able to identify that this action would not be beneficial for her mental wellness and would ultimately result in negative thoughts and a overall poor day. She reports that she choose the more difficult path and is grateful that she did. Group praised pt for utilizing thought reframing and awareness to make a beneficial decision for herself. Progress noted per pt report. Benefited from group support and encouragement. Will continue in IOP to prevent decompensation, improve daily functioning, and stabilize mood. Narrative Note: []
--- NOTE | 2018-02-04 10:10 | BH.SGPN.GN ---
Behaviors/Verbalizations/Mental Status: [] Pt eye contact good, casually dressed, motor activity appropriate, speech normal rate and tone, mood euthymic, congruent affect, thoughts linear and intact, no evidence of delusions or hallucinations. Client Response/Progress/Benefit: []Pt listened attentively to peers and contributed thoughts and ideas to discussion. Pt connected with others comments about using unhealthy coping tends to make the problem worse and often creates additional issues. Pt reported need to increase her internal coping skills because there have been times in which she has reached out to external supports and not received the support needed, so wants to be able to rely on herself in addition to having supports. Pt seemed to benefit from increased awareness of needing balance between internal/external coping skills. Narrative Note: []
--- NOTE | 2018-02-04 11:15 | BH.SGPN.GN ---
Behaviors/Verbalizations/Mental Status: [] Pt eye contact good, casually dressed, motor activity appropriate, speech normal rate and tone, mood depressed, congruent affect, thoughts linear and intact, no evidence of delusions or hallucinations. Client Response/Progress/Benefit: []Pt engaged and active throughout session AEB contributing to group and listening attentively to others. Pt worked cooperatively with peers to identify various healthy coping skills. Pt recognized importance of having healthy internal skills, not an overreliance on just one category of healthy skills. Pt identified five healthy coping skill she is willing to practice includes: breathing techniques, 5 senses grounding tool, positive affirmations, exercising and eating better, and reframing negative thoughts. Pt seemed to benefit from increasing repertoire of healthy coping as well as identifying 5 skills she is willing to practice. Pt to continue IOP level of care to maintain gains, increase generalization of healthy coping, and prevent decompensation. Narrative Note: []
--- NOTE | 2018-02-06 10:00 | BH.SGPN.GN ---
Behaviors/Verbalizations/Mental Status: [] Pt eye contact good, casually dressed, motor activity appropriate, speech normal rate and tone, mood depressed, congruent affect, thoughts linear and intact, no evidence of delusions or hallucinations. Client Response/Progress/Benefit: []Pt listened attentively to others and contributed thoughts and ideas to discussion. When discussing resiliency pt reported she believes individuals can be born resilient, however also believes can build or increase one's ability to be resilient when faced with hardships. Pt worked cooperatively in small group identifying how each strategy can help increase one's resilience. Pt seemed to benefit from increased awareness about importance of being resilient and learning about strategies to help increase her own resilience. Narrative Note: []
--- NOTE | 2018-02-06 11:10 | BH.SGPN.GN ---
Behaviors/Verbalizations/Mental Status: [] Pt eye contact good, casually dressed, motor activity appropriate, speech normal rate and tone, mood depressed, congruent affect, thoughts linear and intact, no evidence of delusions or hallucinations. Client Response/Progress/Benefit: []Pt active participant AEB pt engaging in group activity, contributing to discussion, and attentive to peers. When processing activity pt identified the group was able to be resilient by using each other as social supports and communicating effectively. Pt reported she has learned from session that it's important to put forth effort towards what she wants to accomplish, to trust others in small ways, and be confident. Pt reported on her stress ball she wrote I am worth it, no matter what and Taking care of me is important. Pt shared those phrases will help remind her she can be resilient. Pt seemed to benefit from engaging in activity to rehearse the different resiliency building blocks. Pt to continue IOP level of care to increase positive thinking and prevent decompensation. Narrative Note: []
--- NOTE | 2018-02-10 09:37 | BH.COMM ---
Communication Note - Communication with Client Communication Note: Client cancelled scheduled IOP session due to illness. Client reports plan to attend Saturday02/12/18 if she feels better.
--- NOTE | 2018-02-12 15:15 | BH.COMM ---
Communication Note - Communication with Client Communication Note: Client no called/no showed for her scheduled IOP session today. Therapist attempted to call but did not receive an answer. Therapist left a message. Client has been sick and missed Saturday due to illness. Client did not present with any risks or concerns at last time of IOP attendance. Therapist to follow up with client.
--- NOTE | 2018-02-14 11:42 | BH.MDN ---
Multi-Disciplinary Note - Note 60-min Individual Time Started:: 10:15 Date: 02/14/18 Purpose of session/treatment goals addressed:: The purpose of this session was to address client's current stressors, symptoms, and to reduce anxiety for an upcoming interview. Other topics included cognitive restructuring. Eye Contact:: Good Motor Activity:: Restless Appearance:: Neat - Wearing dress clothes for an interview Speech:: Tangential - Client going off topic at times., Other - coughing throughout session. Mood:: Anxious Affect:: Congruent Thoughts:: Circular Staff Interventions:: Therapist used active listening and open-ended questions to explore client's current stressors, symptoms, and anxious thoughts. Therapist used CBT techniques to assist client in challenging and reframing cognitive distortions. Therapist used strengths perspective to empower client. Therapist reviewed healthy coping skills with client that client will be able to use before, during, and after the interview. Therapist encouraged client to advocate for herself at the interview. Client Response:: Client responded well to session, open to meeting with therapist. Client has not been to group this week due to illness. Client has a job interview today and she reports she is both excited and anxious. Client is excited because, per her report, working gives client a sense of accomplishment and purpose. Client is anxious due to wondering if she is overloading herself and numerous what if scenarios and worries. Client's what ifs included what if I can't handle working with people, what if Anny isn't accepted, what if they don't want me. Client and therapist challenged these cognitive distortions by looking at the evidence against these thoughts. Client shared the person she is interviewing with knows about client?s mental health and seemed supportive on the phone. Client encouraged to look at the facts and use mindfulness to stay in the present moment rather that focus on the potential outcomes. Client able to reframe her cognitive distortions and identify personal strengths that will help client cope with her anxiety. Client receptive to advocating for herself at the interviewing and giving herself time to decide. Client shared even if she does not get the job there will be positives. Risks/Concerns:: Client denies suicidal ideation, plan, and intent as of 02/14/18. Client future oriented throughout session AEB client looking forward to [place] and her job interview. Progress Toward Goals/Plan:: Client demonstrating progress towards treatment goals as shown by client's generalization of coping skills to manage anxiety and PTSD triggers. Client reports an improved mood and has a job interview today which demonstrates progress. Client continues to struggle with catching and challenging cognitive distortions that cause rumination and anxiety without external support, but she has improved with reframing negative thoughts with assistance. Client to continue IOP to promote mood stability and reduce negative thought patterns. Time Stopped:: 11:20
--- NOTE | 2018-02-17 15:43 | BH.COMM ---
Communication Note - Communication with Client Communication Note: Client called into IOP due to increased stress and frustrations with her . Therapist provided emotional support and talked client through healthy coping skills she can implement. Client reports plan to use breathing, positive self-talk, support from her daughter, and reminding herself of the positives of [place] to help client manage emotions. Client to attend group on 02/19/18.
--- NOTE | 2018-02-17 15:47 | BH.COMM_ITS ---
Communication Note - Communication with Client Communication Note: Client called into IOP due to increased stress and fru strations with her . Therapist provided emotional support and talked client through healthy coping skills she can implement. Client reports plan to use breathing, positive self-talk, support from her daughter, and reminding herself of the positives of [place] to help client manage emotions. Client to attend group on 02/19/18.
--- NOTE | 2018-02-19 08:13 | BH.MDN ---
Multi-Disciplinary Note - Note 60-min Individual Time Started:: 12:35 Date: 02/19/18 Purpose of session/treatment goals addressed:: The purpose of this session was to address current stressors, symptoms, and use of coping skills. Other topics included evaluating progress, cognitive restructuring, decisional balance exercises, and learning distress tolerance skills. Eye Contact:: Good Motor Activity:: Appropriate Appearance:: Casual Speech:: Tangential Mood:: Anxious, Dysthymic Affect:: Congruent - tearful Thoughts:: Circular, No evidence of hallucinations/delusions noted Staff Interventions:: Therapist used open-ended questions and active listening to explore client's current symptoms and stressors. Therapist provided emotional validation while also gently challenging client's use of cognitive distortions. Therapist completed a decisional balance worksheet with client to help gain awareness of the mental health pros and cons of being assertive in a recent situation. Therapist taught client IMPROVE which is a DBT distress tolerance technique to help manage difficult to change situations. Therapist used strengths perspective to help client reframe negative thinking and identify positives. Therapist gave client homework to practice IMPROVE and identify areas of personal progress. Client Response:: Client responded well to session, open to meeting with therapist. Client became tearful while sharing a recent trigger during group. Client reported feeling ignored and rejected by a peer during a group activity. This incident reminded client of the other times in her life when she felt ignored and rejected. Client acknowledged she shut down during group rather than confronting the issue and verbalizing her ideas. Client and therapist processed client's choices of dealing with this issue moving forward and completed a decisional balance sheet. Client able to see more clearly the mental health pros and cons on each choice. With assistance, client challenged distorted thoughts that were reinforcing client's feelings of rejection. Client reflected that she has shown progress with looking at different perspectives rather than just being negative all the time. Therapist taught client the IMPROVE technique to help client more effectively manage emotions during difficult moments. Client receptive to practicing this technique and identifying areas she has progressed in for homework. Risks/Concerns:: Client denies suicidal ideation, plan, and intent as of 02/19/18. Progress Toward Goals/Plan:: Client demonstrating progress towards treatment goals as shown by her improvements with challenging cognitive distortions during session and reduced DSM-5 scores for anxiety. Client reports implementing her Trigger Action Plan and using other calming techniques to manage symptoms in the moment. However, client continues to struggle with cognitive restructuring without therapist support, verbalizing her needs, and setting boundaries with supports. Client to continue IOP to promote distress tolerance skills, increase boundary setting, and improve mood. Therapist and client discussed having a family session. Client to complete homework for next session. Time Stopped:: 13:35
--- NOTE | 2018-02-19 10:10 | BH.SGPN.GN ---
Behaviors/Verbalizations/Mental Status: [Client maintained good eye contact, casually dressed, motor activity appropriate, speech normal rate and tone, mood euthymic, anxious, congruent affect, thoughts linear and logical, no evidence of delusions or hallucinations reported or observed.] Client Response/Progress/Benefit: [Client receptive of attending session and did well to actively participate in group AEB input provided and completing reflection activity. Client made connections with discussion on stress and discussed connecting with the symptoms discussed when stressors go unaddressed, noting becoming overwhelmed and increasingly anxious. Benefitted from increasing awareness of impact stressors have on mental health and ability to function when stress is not managed. Client expressed current stressors to include: her mental and physical health, her ?s health, finances, other?s opinions of her, and family. Client progress noted in ability to identify current stressors and impact they have had on client ability to make progress in management of mental health symptoms. Client recommended continued IOP to improve healthy boundaries, increase positive self-talk, and continue to maintain progress.] Narrative Note: []
--- NOTE | 2018-02-19 11:17 | BH.SGPN.GN ---
Behaviors/Verbalizations/Mental Status: []Client alert and oriented, casual dress, hygiene good. Eye contact fair. Motor activity appropriate. Speech positive and encouraging at the beginning of session, then client appeared to withdraw herself and became quiet. Affect flat, mood dysthymic. Thoughts linear, logical, no signs of hallucinations or delusions. Client Response/Progress/Benefit: []Client responded somewhat well to session, taking an active role at the beginning, but then withdrew from activity. Client able to connect the activity to dealing with stress in her life. Client shared ?there was too much going on, so I shut down and thought ?why bother.? The group discussed how self-talk can impact on one manages stress. Client took notes and provided occasional input as the group identified strategies to increase stress management. Client stated asking and accepting help can lead to better stress management. Client helped the group process the four A?s of stress. Client stated it would be helpful for her and her to look at their current stressors and identify what is in their control. Client appeared to benefit from gaining awareness of how she responds to stress and learning techniques to better manage stress. Progress noted as client reports utilizing healthy coping skills, but she continues to struggle with shutting down when feeling overwhelmed. Client to continue IOP to increase emotional regulation and reduce cognitive distortions.
--- NOTE | 2018-02-20 08:20 | BH.MTP_ITS ---
Treatment Plan Review Date of Admission:: 01/20/18 Date of Treatment Plan Review:: 02/19/18 Admitting Diagnoses:: PTSD F43.10 Current Diagnoses:: PTSD F43.10 Patient's Response to Treatment:: Client has responded well to treatment as client appears engaged and receptive during individual and group sessions. Client appears to do well in group with Anny and often takes notes on the topics. Client reports feeling mostly comfortable in group and has connected with a few peers. Client has shown progress with challenging cognitive distortions with assistance and in implementing her Trigger Action Plan to manage symptoms in the moment. Client has been receptive to gentle challenging from therapist on mistaken beliefs and ruminations. However, client self-reports difficulty with replacing her distorted messages without external support. Client responded well to learning about complex trauma and the formation of core beliefs. Client reports ongoing difficulty with prioritizing self-care and setting boundaries, but she continues to be open to the benefits of these coping skills. Client has missed a few days due to illness, but overall has good attendance. Client has called into IOP a few times, hesitant to come to group due to potential triggers, but each time has made the decision to come in after weighing the pros and cons. Client is mostly consistent with homework, but she will occasionally forget. Client open to having a family session. Status of Current Problems and Symptoms: Client continues to report ongoing difficulty with challenging cognitive distortions and ruminations that reinforce negative core beliefs of self. Additionally, client reports ongoing external stressors that impact client?s mental health and functioning. Client reports ongoing guilt from setting boundaries for self-care and fear of invalidation or rejection from supports. Client also continues to struggle with utilizing thought challenging and other coping skills without external support. Client appears to have an external locus of control and can benefit from increasing internal coping mechanisms for managing emotions and PTSD triggers. Lastly, client shared ongoing struggles with communicating her mental health needs and advocating for herself. Problem #1 Problem Name:: Reduce intensity of PTSD symptoms while increasing ability to function Status of Goals:: Objective 1- accomplished. Client has completed a Trigger Action Plan and reports implementing it when she is recognizing warning signs and triggers for PTSD. Objective 2-partially completed. Client can identify anxiety producing thoughts, but she struggles to challenge and replace these thoughts without external support. Team Recommendations:: Client recommended to continue working on treatment goal as she can continue to reinforce healthy coping skills to manage PTSD and replace negative thinking patterns. Client can benefit from consistently challenging negative thoughts that prevent her from reaching out to supports. Client also encouraged to follow up with outpatient provider, Windy Rome, for continuity of care. Problem #2 Problem Name:: Client will reduce anxiety and hypervigilence Status of Goals:: Objective 1- complete, but will continue to seek improvement. Client?s DSM-5 symptoms for anxiety have reduced from 11 out of 12 at admission to 9 out 12 at review. Additionally, client reports using mindfulness and breathing to cope with anxiety. Client continues to struggle with managing tri ggers and ongoing fear of triggers. Objective 2- complete. Client can describe what hypervigilance looks like to her and how it relates to anxiety. Client reports her and Anny, her dog, help client manage anxiety. Team Recommendations:: Client recommended to continue working on treatment goal to increase consistent application of healthy coping skills, increase internal locus of control, and to decrease frequency and intensity of anxiety. Client encouraged to follow up with outpatient provider, Windy Rome, for continuity of care.
--- NOTE | 2018-02-20 09:07 | BH.SGPN.GN ---
Behaviors/Verbalizations/Mental Status: [Eye contact is good. Motor activity appropriate, some shifting in care or becoming distracted by dog. Appearance casual - wearing pajama pants. Speech Appropriate rate and tone. Mood anxious. Affect is congruent with mood. Thoughts are linear and logical. No evidence of delusions or hallucinations. Reviewed daily check in sheet and no reports of suicidal ideations or intent] Client Response/Progress/Benefit: [Client engaged in discussion and provided input to the group throughout. Client reports emotion for today is anxious and noted she believes her anxiety may be related to having maintenance done in her house and feeling uncomfortable with people she doesn?t know being in the home. Client did well to identify potential positives in the situation and noted that having the maintenance work done is a ?good excuse to slow down? as client has no choice but to leave the home and take a break while they are there. Client shared plans to go to a thrift shop with her daughter which will help to serve as a healthy distraction. Client went on to share that she had discussed her stress jar from previous days group with her and request that he complete his own. Client indicated that he had noted caring for her as a current stressor which had been upsetting. She displayed progress in reports that instead of continuing to ruminate upon it, she discussed with her wanting to come up with a plan for them to improve upon their ability to better cope with current stressors moving forward. Recommended continued IOP tx to increase use of anxiety management and healthy coping as well as prevent decompensation.] Narrative Note: []
--- NOTE | 2018-02-20 10:15 | BH.SGPN.GN ---
Behaviors/Verbalizations/Mental Status: []Client alert and oriented, casual dress, hygiene good. Eye contact good. Motor activity appropriate. Speech within normal limits. Affect constricted, mood anxious. Thoughts linear, logical, no signs of hallucinations or delusions. Client Response/Progress/Benefit: []Client responded well to session, active participant. Client reported having a strong support system is needed to make mental health progress, ?but what if you?re always the safety net for everyone else? what happens when you crash.? After further discussion, the group helped client recognize that client may need to set boundaries with her supports, so they are not as reliant on client. Client provided an example of when boundary setting with a support was helpful. Client identified benefits of reaching out and building social support such as: validation, being heard, and having resources. Client reported guilt and cognitive distortions such as ?I don?t want my supports to feel overwhelmed? have kept client from reaching out to her support and building support networks. Client appeared to benefit from gaining insight to the benefits and barriers to increasing social support. Progress noted as shown by client?s report of implementing healthy coping skills, but she can continue to increase communication with her supports to promote self-care.
--- NOTE | 2018-02-20 11:20 | BH.SGPN.GN ---
Behaviors/Verbalizations/Mental Status: [] Pt eye contact good, casually dressed, motor activity appropriate, speech normal rate and tone, mood anxious, congruent affect, thoughts linear and intact, no evidence of delusions or hallucinations. Client Response/Progress/Benefit: []Pt listened attentively to peers and contributed thoughts and ideas to discussion. Pt contributed to discussion about the different types of support and benefits different types of support can provide. Pt reported the type of support like to improve is self-help by attending the [facility]. Pt reported this type of support will be beneficial because will help her get out of comfort zone and increase emotional support. Pt identified 3 steps can take to start improving this type of support is to ask IOP counselor for more information about [facility], ask to attend [facility] with her, ask anyone at IOP to attend [facility] with her. Pt seemed to benefit from identifying a type of support she would like to improve upon to strengthen and broaden her support network. Pt to continue IOP level of care to maintain gains and prevent decompensation. Narrative Note: []
--- NOTE | 2018-02-21 09:00 | BH.SGPN.GN ---
Behaviors/Verbalizations/Mental Status: [] Eye contact is good. Motor activity is appropriate. Appearance is disheveled. Speech is Appropriate. Mood is depressed. Affect is flat. Thoughts are linear and logical. No evidence of psychosis. Reviewed daily check in sheet and no reports of suicidal ideations or intent. Client Response/Progress/Benefit: [] Pt was an active participant in group discussion. Emotion for today is anxious. Shared with the group some conflicts with family members specifically her sister. Relationship with sister is in pt's own words toxic however pt has trouble setting boundaries with sister. Ruminating on decisions which effects her daily functioning and mental wellness. Group provided feedback and encouragement. Will continue in IOP to prevent decompensation, stabilize mood, and improve daily functioning. Progress noted per pt report. Narrative Note: []
--- NOTE | 2018-02-24 09:04 | BH.SGPN.GN ---
Behaviors/Verbalizations/Mental Status: [Eye contact is good. Motor activity restless client shifting in chair and adjusting clothing. Appearance casual. Speech Appropriate rate and tone. Mood anxious, dysthymic. Affect is congruent. Thoughts linear, logical, intact. No evidence of delusions or hallucinations. Reviewed daily check in sheet and no reports of suicidal ideations or intent.] Client Response/Progress/Benefit: [Client receptive of session, though provided minimal input as fellow participants shared. Willing to process current stressors with group. Client reports emotion for the day as ?anxious? and ?disconnected?. Client discussed that this was related to her daughter?s health as she has a chronic illness and was injured over the weekend. Client indicated that she had done well to respect her daughter?s desire to wait to go to the hospital despite feeling anxious about it. Client noted that this had been a positive as she was able to work on challenging her rumination which is progress, and that her daughter ended up being fine. Client notes an additional positive as her identifying client needing to relax and that he had taken the initiative to make dinner. She shared that although this was a positive, she fears she is placing too much stress on her . Client indicates that they are scheduled for a family session this afternoon to discuss how to communicate more effectively and find better balance. Client recommended continued IOP tx to improve ability to challenge use of disqualifying the positive and distorted thought patterns. As well as to prevent decompensation.] Narrative Note: []
--- NOTE | 2018-02-24 11:30 | BH.SGPN.GN ---
Behaviors/Verbalizations/Mental Status: [] Eye contact is good. Motor activity is appropriate. Appearance is disheveled. Speech is Appropriate. Mood is depressed. Affect is flat. Thoughts are linear and logical. No evidence of psychosis. Client Response/Progress/Benefit: [] Pt was tearful during majority of the group and chose not to share. Appeared attentive, however at times rested head down on table. Participated at time during group activity. Limited benefit to group due to lack of participation. Decompensating mood currently which is interfering with treatment. Will continue in IOP to prevent decompensation, maintain safety, and improve functioning. Narrative Note: []
--- NOTE | 2018-02-24 14:31 | BH.MDN ---
Multi-Disciplinary Note - Note Family Time Started:: 13:05 Date: 02/24/18 Purpose of session/treatment goals addressed:: The purpose of this session was to engage client's , Tenzin, in client's treatment by providing psychoeducation and communicating client's support needs. Other topics included cognitive restructuring, increasing social support, and self-care. Eye Contact:: Fair Motor Activity:: Appropriate Appearance:: Casual Speech:: Tangential Mood:: Anxious, Dysthymic Affect:: Constricted Thoughts:: Linear, Logical, No evidence of hallucinations/delusions noted Staff Interventions:: Therapist used active listening and open-ended questions to explore client and her 's expectations for session. Therapist provided psychoeducation on PTSD, depression, and triggers. Therapist reinforced healthy coping and communication strategies the couple has been using and encouraged the couple to practice individual stress management techniques. Therapist discussed the benefits of positive self-talk, self-care, and increasing social supports. Therapist gave client a [facility] calendar. Therapist helped client challenge mistaken beliefs and gave client homework to write out realistic expectations of supermom. Therapist gave the couple homework to complete a worksheet on different ways to provide client support. Client Response:: Client and her , Tenzin, responded well to session. Client and Tenzin both wanted to increase support for client's mental health while helping one another cope with stress. Tenzin shared he and client review client's IOP homework and group topics together at night which, per his report, is beneficial. Client reported overall Tenzin is very support with client's mental health, but client has been struggling lately with living up to his supermom/ superwife expectations. Client stated feeling like I have to be perfect all the time or do things even when I'm struggling. Client shared this causes her to not ask for help when she is stressed and to pretend like she is fine, leading to minimization. Tenzin and client were able to clarify expectations and challenge distortions. Client able to recognize that Tenzin is not expecting her to be perfect all the time, he was trying to provide encouragement and make client feel good. Client receptive to challenging her expectations of supermom by writing out more realistic definitions of what a supermom is. Client stated a supermom has boundaries and uses self-care. The couple began working on a worksheet that identified different ways to provide support to each other. Client reported needing more social support and expressed interest in attending [facility] [place]. Risks/Concerns:: Client denies suicidal ideation, plan, and intent as of 02/24/18. Progress Toward Goals/Plan:: Client demonstrating some progress towards treatment goals as her DSM-5 scores for anxiety have decreased since starting IOP. However, client continues to self-report feeling stressed to the max and like she is minimizing her mental health symptoms. Client's shared client struggles with seeing things from a different perspective which leads to cognitive distortions and unrealistic expectations of self. Client acknowledges ongoing difficulty challenging her negative thoughts in the moment due to years of negative core beliefs. Client does well with thought challenging when assisted by a support person. Client and to complete the worksheet on support and client to identify realistic characteristics of supermom. Client to continue IOP to prevent decompensation and reduce negative core beliefs. Time Stopped:: 14:20
== END 2018-02-24 23:59 ==
LOC: BHIOP 09:00
PROVIDERS: Visit Provider Psychiatry & Neurology Psychiatry
DX: F43.10 Post-traumatic stress disorder, unspecified (principal)
CPT/HCPCS: H0035; H2012; H2020; 90837; 90847

== ENCOUNTER 2018-02-27 09:00 | Outpatient (RCR) | payer MEDICAID, SELFPAY ==
[2017-10-23 10:17] VITALS: BMI 46.0
--- NOTE | 2018-02-24 10:20 | BH.SGPN.GN ---
Behaviors/Verbalizations/Mental Status: [] Client alert and oriented, casual dress, hygiene good. Eye contact good. Motor activity appropriate. Speech within normal limits. Affect flat, mood dysthymic. Thoughts linear, logical, no signs of hallucinations or delusions. Client Response/Progress/Benefit: []Client responded well to session, participating when discussion. Client connected with the quote sharing, ?I have huge barriers in self-talk and taking what people say to heart.? Client participated in the activity where client created visual representations of her current and desired mental health realities. Client?s current reality was ?I seem happy, but everything is fake? as client often portrays being high functioning, but she is stressed ?to the max.? Client?s realistic desired reality is being able to take time for self-care, talk with her supports, and using her coping skills more consistently. Client?s barriers keeping her from her desired reality were judgement, lack of self-acceptance, and not being honest with herself. Client?s identified her dog, Anny, and her family as positives helping client in her current reality. Client appeared to benefit from gaining awareness of the barriers keeping client from improved mental wellness. Client demonstrating progress toward treatment goals as she is able to identify coping skills, but she reports struggling with knowing how and when to use them.
--- NOTE | 2018-02-27 09:10 | BH.SGPN.GN ---
Behaviors/Verbalizations/Mental Status: [] Eye contact is good. Motor activity is appropriate. Appearance is casual. Speech is Appropriate. Mood is anxious. Affect is congruent. Thoughts are linear and logical. No evidence of psychosis. Reviewed daily check in sheet and pt reports suicidal ideations of 1/5 and intent at 0/5. Client Response/Progress/Benefit: [] Pt was quiet for a majority of the session however spoke when prompted. Emotion for today is stressed. Shared that she spent 4 hours in her car crying yesterday. Reports significant stressors related to finances and she feels powerless to help. Reports feeling like a burden to her family due to her medical and emotional issues as they keep her from working and bringing in an income. States that she choose not to utilize any coping skills yesterday as she just wanted to cry and emotionally release her frustrations. Group provided support and encouragement. Group able to identify other ways that she provides support to her family aside from finances. Able to reframe and challenge some negative thoughts. No progress noted per pt report. Will continue in IOP to maintain safety, prevent decompensation, and stabilize mood. Narrative Note: []
--- NOTE | 2018-02-27 10:10 | BH.SGPN.GN ---
Behaviors/Verbalizations/Mental Status: []Client alert and oriented, casual dress, hygiene good. Eye contact good. Motor activity appropriate. Speech within normal limits. Affect constricted, mood dysthymic. Thoughts linear, logical, no signs of hallucinations or delusions. Client Response/Progress/Benefit: []Client responded well to session, participating when prompted. Client reported taking action to her means ?advocating for yourself? to improve personal mental wellness. Client shared there are numerous barriers that prevent people from taking action such as fear of unknown and comfort zones. Client identified things holding client back from improved mental wellness such as ?wearing the mask? or minimizing, negative core beliefs, and negative self-talk. Client stated she has had these barriers for so long, ?I can?t imagine life without them? but client acknowledged her mental health would improve if she could let go of these barriers. Client engaged in the activity symbolizing the ability to let go of the things holding client back and appeared to benefit from emotional release and gaining awareness of personal barriers. Client stated the activity ?emotional? for her and helped her process current challenges. Progress noted as shown by client?s report of implementing healthy coping skills, but client continues to report a negative self-talk and minimization of symptoms which could hinder progress.
--- NOTE | 2018-02-27 11:17 | BH.SGPN.GN ---
Behaviors/Verbalizations/Mental Status: [Client alert and oriented. Appearance is casual and comfortable, appropriate grooming. Eye contact fair to good. Motor activity WNL. Speech appropriate rate and soft tone. Affect congruent. mood anxious, depressed. Thoughts linear, logical, no signs of hallucinations or delusions.] Client Response/Progress/Benefit: [Client engaged, provided limited input, though actively listening and content relevant when providing to the discussion. Client benefitted from reflecting with the group on the importance of taking small actionable steps towards addressing barriers and making notable changes in her life. Client did well to work with the group on completing a 30 Days to Change Action Plan worksheet, despite having some difficulties in identifying steps she can take to challenge negative self-talk. Client identified wanting to make strides towards no longer viewing herself as a burden. Client shared that small steps she plans to take in the next 30 Days include: Completing daily devotions, as well as ?saying ?yes? to myself? by prioritizing her own needs. Client progress in her ability to challenge self-defeating comments used and engage in more positive self-talk statements. Recommended continued IOP tx to promote healthy coping and decrease depressive sx.] Narrative Note: []
--- NOTE | 2018-02-27 13:56 | BH.MDN ---
Multi-Disciplinary Note - Note 45-min Individual Time Started:: 12:25 Date: 02/27/18 Purpose of session/treatment goals addressed:: The purpose of this session was to address recent triggers and mood state. Other topics included cognitive restructuring, support, and review of coping skills. Eye Contact:: Fair Motor Activity:: Appropriate Appearance:: Casual Speech:: Appropriate Mood:: Dysthymic Affect:: Congruent - tearful Thoughts:: Other - client using numerous cognitive distortions throughout session., No evidence of hallucinations/delusions noted Staff Interventions:: Therapist used open ended questions to explore client?s current symptoms and stressors. Therapist challenged client?s distorted thought patterns and assisted client with recognizing how much her thought patterns impact functioning and self-worth. Therapist helped client identify evidence to support client?s worth and challenge belief of being a burden. Therapist assisted client with identifying positives and progress. Therapist provided support by using active listening and providing feedback. Therapist discussed the benefits of case management and social support. Therapist gave client homework to read an article challenging core beliefs and to document things client does that demonstrates her worth. Client Response:: Client responded well to session and open to thought challenging and homework from therapist. Client reported feeling calm before the storm which client explained is being so overwhelmed I'm exhausted. Client shared her family's financial issues are worsening and client reports feeling like a burden because she is not working. Client stated feeling increased depressive symptoms and hopelessness today there's no purpose...I have no choice just responsibilities. Client acknowledged use of cognitive distortions and with therapist feedback and elicitation, client was able to challenge negative thought patterns. Client identified her willingness to come to group today, increased self-reflection, and communication with a support as positives and evidence to support her self-worth. Client also able to identify activities and people that give client a sense of purpose such as her family, dog, and adventism. Client reported plans to have lunch with a positive support today to talk about her mental health which demonstrates progress. Client reported understanding that negative thinking further continues the depressive cycle. Client nodding and agreeable to practice looking at the shades of hurt today instead of thinking dichotomously. Client receptive to potential case management services to assist with financial stressors. Risks/Concerns:: Client denies active suicidal ideation, plan, and intent as of 02/27/18. Client identifies her family as a reason to live. Progress Toward Goals/Plan:: Client reports progress is variable as she shared feeling ?like every time I make progress a hundred more stressors pile on me.? Client continues to struggle with numerous external stressors such as finance issues and health problems that exacerbate her mental health symptoms. Per client?s report, she is implementing the healthy coping skills and is trying to challenge negative core beliefs, but she is having a hard time believing the alternative, healthy beliefs. Client?s progress is variable based on the week or day as client has made positive movement towards her goals, but currently is decompensating. Client?s negative and distorted thought patterns continue to be hindrance to treatment progress. Client showed progress in breaking the depressive maintenance cycle by coming to group today and making plans to reach out with a support this afternoon. Client receptive to homework. Client to continue IOP level of care to stabilize moods, challenge distorted thoughts, and prevent further decompensation. Time Stopped:: 13:10
--- NOTE | 2018-02-28 09:05 | BH.SGPN.GN ---
Behaviors/Verbalizations/Mental Status: [Eye contact is good. Motor activity WNL. Appearance casual, clean. Speech Appropriate rate and tone. Mood depressed, anxious. Affect is constricted. Thoughts linear and logical. No evidence of delusions or hallucinations. Reviewed daily check in sheet and reports of 1/5 on suicidal ideations, denies intent. Indicates willingness to further check-in with individual counselor to ensure safety.] Client Response/Progress/Benefit: [Client receptive of session, however providing no input throughout and indicated being upset. She declined to process current stressors and symptoms with the group however was willing to check-in with individual therapist following group. Benefitted from supportive group environment and displaying progress in willingness to attend group today despite feeling overwhelmed and upset. CLient recommended continued IOP to establish consistent coping plan and prevent decompensating. ] Narrative Note: []
--- NOTE | 2018-02-28 10:17 | BH.SGPN.GN ---
Behaviors/Verbalizations/Mental Status: []Client alert and oriented, casually dressed, hygiene good. Eye contact fair. Motor activity slowed. Speech within normal limits. Affect constricted, mood dysthymic. Thoughts linear, logical, no signs of hallucinations or delusions. Client Response/Progress/Benefit: []client responded well to session, contributing occasionally, but mostly taking notes. Client reported conflict can be positive if it involves advocating. Client helped the group identify barriers that impact one?s ability to manage conflict such as high emotions, distortions, and low self-esteem. Client took notes as the group discussed the different conflict resolution styles and the pros and cons of each. Client reported she is mostly the accommodating type as client stated, ?I put my needs on the back burner because I feel guilty.? Client reported her conflict style has caused client to feel overwhelmed and not get her mental health needs met. Client appeared to benefit from gaining awareness of how her conflict resolution style impacts mental health and relationships. Progress variable as client had reported improved mood, but recently reports decompensation due to numerous external stressors. Client to continue IOP to prevent further decompensation and reduce depressive symptoms.
--- NOTE | 2018-02-28 11:20 | BH.SGPN.GN ---
Behaviors/Verbalizations/Mental Status: [] Eye contact is good. Motor activity is appropriate. Appearance is casual. Speech is Appropriate. Mood is depressed. Affect is flat. Thoughts are linear and logical. No evidence of psychosis. Client Response/Progress/Benefit: [] Pt was an active participant in group discussion and activity. Pt identified that her conflict style is mainly avoidant and accommodating. She discussed how this style is at times detrimental to her MH allowing other to take advantage of her. Worked with the group to identify barriers to effectively managing conflict which include; external stressors, other's people's personality and motives, current emotions, negative self-talk, doubt, worries, and fear of being put down verbally. Group also worked together on strategies to better manage conflict which include; brainstorming, listening to other's ideas, developing plans, and being specific in communicating thoughts, needs, and desires. Benefited from group as she was able to identify how current conflict style impacts MH and some strategies to better digital campaign manager conflict. Will continue in IOP to prevent decompensation and improve functioning. Narrative Note: []
--- NOTE | 2018-02-28 14:36 | BH.COMM ---
Communication Note - Communication with Client Communication Note: Therapist checked in with client as she reported 1 out of 5 for thoughts of suicide on the daily symptom tracker. Client reported she has been having passive suicidal thoughts such as it would be easier? due to ongoing financial stressors. Client denied active suicidal ideation and reported ability to maintain safety today. Client agreeable to go to the ER should she not feel safe. Client future oriented and reports plan to spend the day with her daughter. Deterrents of family and levi. Client to meet with therapist next week for individual session.
--- NOTE | 2018-03-03 07:30 | BH.COMM ---
Communication Note - Communication with Client Communication Note: Therapist spoke with client's outpatient provider regarding updates, progress and barriers, and wrap-around service options. Therapist to follow up with outpatient provider closer to client's discharge.
--- NOTE | 2018-03-03 09:10 | BH.SGPN.GN ---
Behaviors/Verbalizations/Mental Status: [] Eye contact is good. Motor activity is appropriate. Appearance is disheveled. Speech is Appropriate. Mood is depressed. Affect is flat. Thoughts are linear and logical. No evidence of psychosis. Reviewed daily check in sheet and no reports of suicidal ideations or intent. Client Response/Progress/Benefit: [] Pt did not speak much during group discussions however was attentive. Emotion for today is irritated. Reports that she continues to struggle with significant depression over the weekend, however at this stage is utilizing some self-care and coping strategies. Choose to be active and take her dog to the dog park which was beneficial for her as well as her dog. Spent time with external supports this weekend however was utilizing internal coping skills as well to ensure thoughts did not become overwhelming. Pt states I'm not fine but I'm also not in complete crisis. Progress noted. Benefited from group support and feedback. Will continue in IOP to maintain safety, prevent decompensation, and increase coping skills. Narrative Note: []
--- NOTE | 2018-03-03 10:10 | BH.SGPN.GN ---
Behaviors/Verbalizations/Mental Status: [Client eye contact good, casually dressed, motor activity appropriate, speech normal rate and tone, mood dysthymic, congruent affect, thoughts linear and intact, no evidence of delusions or hallucinations.] Client Response/Progress/Benefit: [Client receptive of session and contributed input to discussion as well as connected materials to own life. Client connected with the quote and shared that she has been making efforts to improve on her communication in daily life. Client noted that in the past she has shut-down or used inauthentic expressions of ?I?m fine? when asked how she is doing. She noted now trying to use the phrase ?I?m working on it? as this feels closer to actual emotions. She benefitted from discussion about the four different types of communication (passive, passive-aggressive, aggressive, and assertive). Client able to identify benefits and costs to each type of communication. Identified that she finds she is able to be assertive with her family and loved one?s but struggles in doing so with others. Progress noted in ability to connect with materials discussed and apply them to her own experiences. Continued treatment to maintain stability and improve emotion regulation, and prevent decompensation.] Narrative Note: []
--- NOTE | 2018-03-03 10:14 | BH.COMM ---
Communication Note - Communication with Client Communication Note: Therapist attempted to call client's outpatient provider, Windy Rome, for continuity of care purposes and to discuss updates/symptoms. Therapist left a message for Windy.
--- NOTE | 2018-03-03 11:14 | BH.SGPN.GN ---
Behaviors/Verbalizations/Mental Status: []Client alert and oriented, casual dress, hygiene good. Eye contact good. Motor activity appropriate. Speech within normal limits. Affect constricted, mood dysthymic. Thoughts linear, logical, no signs of hallucinations or delusions. Client Response/Progress/Benefit: []Client responded somewhat well to session, taking notes, but shutting down during the activity at times. Client reported she often uses passive communication as client shuts down and avoids confrontation. Client shared her communication style leads to client holding in emotions and not getting her needs met. Client provided input occasionally in the activity, but she would often shut down unless prompted by therapist. Client helped the group identify strategies to improve communication such as challenging self-doubt, being specific, and being honest with oneself and others. Client appeared to benefit from gaining awareness of how shutting down can impact her communication with supports and mental wellness. Progress shown in improved mood from last week, but client continues to report depressed mood and not communicating fully with supports about her needs which could hinder progress.
--- NOTE | 2018-03-03 14:21 | BH.MDN ---
Multi-Disciplinary Note - Note 60-min Individual Time Started:: 12:45 Date: 03/03/18 Purpose of session/treatment goals addressed:: The purpose of this session was to address current stressors, symptoms, and things that are positively and negatively impacting client progress. Another goal was to review homework and create treatment goals moving forward. Other topics included: cognitive restructuring, radical acceptance, and self-care. Eye Contact:: Fair Motor Activity:: Restless Appearance:: Casual Speech:: Tangential Mood:: Anxious, Dysthymic Affect:: Congruent Thoughts:: Circular, No evidence of hallucinations/delusions noted Staff Interventions:: Therapist used active listening and open-ended questions to explore client's stressors, symptoms, and review homework. Therapist used motivational interviewing to help client recognize thoughts and patterns of behavior that positively and negatively impact progress. Therapist assisted client in creating realistic goals to promote mental wellness for the rest of client's time in IOP. Therapist challenged cognitive distortions that reinforce negative core beliefs and avoidance behaviors while helping client look at alternative, positive outcomes. Therapist introduced radical acceptance. Therapist gave client homework to identify two goals for each area of self-care and to practice a mindfulness technique for 2 minutes each time client gets in her car. Client Response:: Client responded well to session, reported completing some of the homework, but not all as completed. Client's daily symptom tracker indicates her symptoms have slightly decreased from last week which is positive. Client reported she continues to struggle with negative core beliefs and cognitive distortions. Client stated, when will I start to believe the positives. Therapist and client discussed the importance of consistent application and patience when reframing deep rooted negative thinking patterns. Client appeared to recognize her thought patterns will not be completely changed when she discharges from [facility], but she can improve with reframing them. Client reported numerous distortions keeping client stuck and preventing client from reaching out to possible positive supports. With assistance and gentle challenging, client able to identify evidence against her negative thoughts as well as the consequences of not reaching out to supports. Client shared she has made progress with implementing mindfulness techniques and following her 30-day plan to reduce feeling like a burden. Client and therapist discussed setting realistic goals for the remaining time client has in [facility] to best support client's mental health. Client established goals of: being more open about her thoughts and emotions with supports and her outpatient therapist, using positive self-talk in group and at home, and managing her triggers more effectively. Client selected managing triggers as her goal for today. Client stated it is hard for her to recognize her emotions because she is always ?go go go and then it hits me. Client receptive to practicing mindfulness every time client gets in her car. This can help client check in with how she is feeling which will help client recognize what she needs and how to cope more effectively. Client also shared self-care plays a role in her ability to manage triggers. Client receptive to homework provided on increasing self-care. Risks/Concerns:: Client denies active suicidal ideation, plan, and intent as of 03/03/18. Client future focused reporting plans to see her outpatient therapist today and meet with a case management assistant on Saturday. Progress Toward Goals/Plan:: Progress continues to be variable based on the week or day as client has made positive movements towards treatment goals as shown by her report of utilizing mindfulness and other coping skills to manage symptoms. However, client?s negative and distorted thought patterns continue to be a hindrance to treatment as client reports ongoing struggles with ?believing the positives,? challenging negative self-talk, and reaching out to support for fear of rejection or invalidation. Client acknowledged her minimization of symptoms while in IOP may also be contributing to her variable progress. Client agreeable to the goals set for the remainder of IOP and is receptive practicing self-care and verbal processing. Client to complete homework for next session and discuss updates with outpatient provider. Client reports plan to meet with a case management assistant at [facility] on Saturday. Time Stopped:: 13:45
--- NOTE | 2018-03-03 15:35 | BH.MDN_ITS ---
Multi-Disciplinary Note - Note 60-min Individual Time Started:: 12:45 Date: 03/03/18 Purpose of session/treatment goals addressed:: The purpose of this session was to address current stressors, symptoms, and things that are positively and negatively impacting client progress. Another goal was to review homework and create treatment goals moving forward. Other topics included: cognitive restructuring, radical acceptance, and self-care. Eye Contact:: Fair Motor Activity:: Restless Appearance:: Casual Speech:: Tangential Mood:: Anxious, Dysthymic Affect:: Congruent Thoughts:: Circular, No evidence of hallucinations/delusions noted Staff Interventions:: Therapist used active listening and open-ended questions to explore client's stressors, symptoms, and review homework. Therapist used motivational interviewing to help client recognize thoughts and patterns of behavior that positively and negatively impact progress. Therapist assisted client in creating realistic goals to promote mental wellness for the rest of client's time in IOP. Therapist challenged cognitive distortions that reinforce negative core beliefs and avoidance behaviors while helping client look at alternative, positive outcomes. Therapist introduced radical acceptance. Ther allyson gave client homework to identify two goals for each area of self-care and to practice a mindfulness technique for 2 minutes each time client gets in her car. Client Response:: Client responded well to session, reported completing some of the homework, but not all as completed. Client's daily symptom tracker indicates her symptoms have slightly decreased from last week which is positive. Client reported she continues to struggle with negative core beliefs and cognitive distortions. Client stated, when will I start to believe the positives. Therapist and client discussed the importance of consistent application and patience when reframing deep rooted negative thinking patterns. Client appeared to recognize her thought patterns will not be completely changed when she discharges from [facility], but she can improve with reframing them. Client reported numerous distortions keeping client stuck and preventing client from reaching out to possible positive supports. With assistance and gentle challenging, client able to identify evidence against her negative thoughts as well as the consequences of not reaching out to supports. Client shared she has made progress with implementing mindfulness techniques and following her 30-day plan to reduce feeling like a burden. Client and therapist discussed setting realistic goals for the remaining time client has in [facility] to best support client's mental health. Client established goals of: being more open about her thoughts and emotions with supports and her outpatient therapist, using positive self-talk in group and at home, and managing her triggers more effectively. Client selected managing triggers as her goal for today. Client stated it is hard for her to recognize her emotions because she is always ?go go go and then it hits me. Client receptive to practicing mindfulness every time client gets in her car. This can help client check in with how she is feeling which will help client recognize what she needs and how to cope more effectively. Client also shared self-care plays a role in her ability to manage triggers. Client receptive to homework provided on increasing self-care. Risks/Concerns:: Client denies active suicidal ideation, plan, and intent as of 03/03/18. Client future focused reporting plans to see her outpatient therapist today and meet with a pillowcase turner on Saturday. Progress Toward Goals/Plan:: Progress continues to be variable based on the week or day as client has made positive movements towards treatment goals as shown by her report of utilizing mindfulness and other coping skills to manage symptoms. However, client?s negative and distorted thought patterns continue to be a hindrance to treatment as client reports ongoing struggles with ?believing the positives,? challenging negative self-talk, and reaching out to support for fear of rejection or invalidation. Client acknowledged her minimization of symptoms while in IOP may also be contributing to her variable progress. Client agreeable to the goals set for the remainder of IOP and is receptive practicing self-care and verbal processing. Client to complete homework for next session and discuss updates with outpatient provider. Client reports plan to meet with a pillowcase turner at [facility] on Saturday. Time Stopped:: 13:45
--- NOTE | 2018-03-05 09:58 | BH.COMM ---
Communication Note - Communication with Client Communication Note: Client called into [facility] to inform therapist she cancelled today due an appointment at [facility] in [place]. Client reported at the appointment she expressed suicidal ideation and was encouraged by the nurse practitioner to be assessed by crisis in [facility]. During the time of the call client stated she was waiting for crisis to assess her. Client's daughter was present with client. Client reported plans to potentially be admitted into inpatient level of care. Client was encouraged by therapist to get the level of care that will best help client at this time. Client reported willingness to follow up with [facility] regarding crisis assessment. Therapist reminded client that she can continue IOP treatment if appropriate based on current symptoms and needs. Client would discharge from [facility] level of care should she need inpatient treatment.
--- NOTE | 2018-03-06 14:24 | BH.COMM ---
Communication Note - Communication with Client Communication Note: Recieved call from pt who reports that she completed crisis assessment last evening at [facility] and was discharged home. According to pt she called to inform use that she does not wish to continue with our IOP stating that group work at times causes her PTSD symptoms to exacerbate. Told her that we understand and will discharge her from the program. She requested the numbers to [facility] and the local [facility] which I provided. I encouarged her to follow the discharge and safety plan that she had developed with crisis team and [facility] yesterday. Thanked her for informing us of her current status and request for discharge. Reports that she has appointment with [facility] tomorrow and plans to call her primary therapist Kari Rome at [facility].
--- NOTE | 2018-03-06 14:37 | BH.DS ---
Discharge Summary - Demographics Date of Admission:: 01/20/19 Discharge Date: 03/06/18 Presenting Problems at Admission:: Client is a 47-year-old female, who at admission reported a history of PTSD and significant trauma since childhood. Client referred to IOP by outpatient therapist due to worsening anxiety and trauma triggers which were resulting in increased panic attacks, isolation, and reduced sleep. At admission, client endorsed nightmares, ruminations, and flashbacks. Clients reported difficulty completing self-care and ADLs due to mental health and medical issues. Client endorsed negative thoughts of self and guilt. Discharge Diagnoses:: PTSD F43.10 Reason for Discharge:: Per client report, she completed a crisis assessment last evening at [facility] and does not wish to continue the IOP program. Client stated that group work at times exacerbates client?s symptoms of PTSD. Client would like to seek more trauma-focused care and was [facility]. Due to unexpected discharge client did not complete program surveys. Discharge completed over the phone. - Treatment Progress During Treatment & Response: Client appeared to respond mostly well to IOP prior to the last week of treatment. Overall, client progress was variable based on the week or day as client made positive movements towards treatment goals as shown by her report of utilizing mindfulness and other coping skills to manage symptoms and reduced DSM-5 scores for anxiety at review. Client also completed a Trigger Action Plan and learned about complex trauma. However, client?s negative, distorted thought patterns and self-reported minimization of symptoms appeared to be a hindrance to treatment. Client reported ongoing struggles with ?believing the positives,? communicating mental health needs, and reaching out to support for fear of rejection or invalidation. Client appeared receptive to learning new strategies, but without external support client struggled with consistent application of thought challenging and boundary setting. Client was mostly active in IOP as she engaged in groups through note taking, but often shut down when asked to provide verbal input. Client reported being triggered a few times during group, and she was frequently encouraged to practice in the moment coping skills. Due to unexpected discharge, client and therapist did not get to complete treatment goals. Client reports belief it would be more beneficial for her to seek trauma-focused treatment at this time. Client?s outpatient therapist has been informed of updates. Issues Still to be Addressed:: Client can benefit from ongoing trauma-focused treatment to more effectively manage triggers and symptoms of PTSD. Client continues to endorse numerous negative core beliefs and cognitive distortions that impact client's self-worth, mood, and relationships with others. Client can benefit from ongoing work to challenge, reframe, and replace negative core beliefs with more positive, balanced beliefs. Client reported DBT techniques of mindfulness and grounding were helpful in managing symptoms and client could benefit from reinforcement of these coping skills. Client can continue to increase self-care, communication with supports, and boundary setting. Lastly, client reported minimization of symptoms towards [facility] staff, outpatient therapist, and family which could hinder future progress. Discharge Recommendations/Instructions:: Client was provided numbers for [facility] and the local [facility]. Client encouraged to follow the discharge and safety plan that she developed with crisis team at [facility] yesterday. Client encouraged to follow up with her case management appointment at [facility] tomorrow as well as with her outpatient therapist, Kari Rome at [facility] who client sees weekly. Discharge Handout: Complete Discharge Handout with client on aftercare options and continuity of care.
--- NOTE | 2018-03-06 14:40 | BH.COMM_ITS ---
Communication Note - Communication with Client Communication Note: Recieved call from pt who reports that she completed crisis assessment last evening at [facility] and was discharged home. According to pt she called to inform use that she does not wish to continue with our IOP stating that group work at times causes her PTSD symptoms to exacerbate. Told her that we understand and will discharge her from the program. She requested the numbers to [facility] and the local [facility] which I provided. I encouarged her to follow the discharge and safety plan that she had developed with crisis team and [facility] yesterday. Thanked her for informing us of her current status and request for discharge. Reports that she has appointment with her child support case officer [facility] tomorrow and plans to call her primary therapist Kari Rome at [facility].
--- NOTE | 2018-03-06 14:47 | BH.DS_ITS ---
Discharge Summary - Demographics Date of Admission:: 01/20/19 Discharge Date: 03/06/18 Presenting Problems at Admission:: Client is a 47-year-old female, who at admission reported a history of PTSD and significant trauma since childhood. Client referred to IOP by outpatient therapist due to worsening anxiety and trauma triggers which were resulting in increased panic attacks, isolation, and reduced sleep. At admission, client endorsed nightmares, ruminations, and flashbacks. Clients reported difficulty completing self-care and ADLs due to mental health and medical issues. Client endorsed negative thoughts of self and guilt. Discharge Diagnoses:: PTSD F43.10 Reason for Discharge:: Per client report, she completed a crisis assessment last evening at [facility] and does not wish to continue the IOP program. Client stated that group work at times exacerbates client?s symptoms of PTSD. Client would like to seek more trauma-focused care and was provided information for [facility]. Due to unexpected discharge client did not complete program surveys. Discharge completed over the phone. - Treatment Progress During Treatment & Response: Client appeared to respond mostly well to IOP prior to the last week of treatment. Overall, client progress was variable based on the week or day as client made positive movements towards treatment g oals as shown by her report of utilizing mindfulness and other coping skills to manage symptoms and reduced DSM-5 scores for anxiety at review. Client also completed a Trigger Action Plan and learned about complex trauma. However, client?s negative, distorted thought patterns and self-reported minimization of symptoms appeared to be a hindrance to treatment. Client reported ongoing struggles with ?believing the positives,? communicating mental health needs, and reaching out to support for fear of rejection or invalidation. Client appeared receptive to learning new strategies, but without external support client struggled with consistent application of thought challenging and boundary setting. Client was mostly active in IOP as she engaged in groups through note taking, but often shut down when asked to provide verbal input. Client reported being triggered a few times during group, and she was frequently encouraged to practice in the moment coping skills. Due to unexpected discharge, client and therapist did not get to complete treatment goals. Client reports belief it would be more beneficial for her to seek trauma-focused treatment at this time. Client?s outpatient therapist has been informed of updates. Issues Still to be Addressed:: Client can benefit from ongoing trauma-focused treatment to more effectively manage triggers and symptoms of PTSD. Client continues to endorse numerous negative core beliefs and cognitive distortions that impact client's self-worth, mood, and relationships with others. Client can benefit from ongoing work to challenge, reframe, and replace negative core beliefs with more positive, balanced beliefs. Client reported DBT techniques of mindfulness and grounding were helpful in managing symptoms and client could benefit from reinforcement of these coping skills. Client can continue to increase self-care, communication with supports, and boundary setting. Lastly, client reported minimization of symptoms towards [facility] staff, outpatient therapist, and family which could hinder future progress. Discharge Recommendations/Instructions:: Client was provided numbers for [facility] and the local [facility]. Client encouraged to follow the discharge and safety plan that she developed with crisis team at [facility] yesterday. Client encouraged to follow up with her case management appointment at [facility] tomorrow as well as with her outpatient therapist, Kari Rome at [facility] who client sees weekly. Discharge Handout: Complete Discharge Handout with client on aftercare options and continuity of care.
== END 2018-03-06 13:57 | disposition home or self-care (01) ==
LOC: BHIOP 09:00
PROVIDERS: Referring Provider Psychiatry & Neurology Psychiatry; Visit Provider Psychiatry & Neurology Psychiatry
DX: F43.10 Post-traumatic stress disorder, unspecified (principal)
CPT/HCPCS: H0035; H2020; 90834; 90837

== ENCOUNTER → 2018-05-12 08:42 | Outpatient (CLI) | payer MEDICAID, SELFPAY ==
--- NOTE | 2018-05-12 08:57 | VDLE_ITS ---
Reason For Study: LEG PAIN -R/O DVT RIGHT GSV is normal. CFV is compressible, spontaneous, phasic, competent and demonstrates normal augmentation. FV is compressible, spontaneous, phasic, competent and demonstrates normal augmentation. POP V is compressible, spontaneous, phasic, competent and demonstrates normal augmentation. T/P Trunk is compressible. PTV is compressible. RT PerV is compressible. Procedure Exam performed in department. A preliminary report was called and/or faxed to Dr. Choi. Interpretation Summary Deep veins of the right lower extremity are patent and compressible segmentally. There is no evidence of right lower extremity deep vein thrombosis. Valvular competence appears intact within the proximal deep venous system on the right . The right greater saphenous vein appears patent and compressible segmentally. Ordering Physician: Leonid Choi Referring Physician: Leonid Choi Performed By: Dana Elmore RVT
== END ==
PROVIDERS: Referring Provider Psychiatry & Neurology Neurology; Visit Provider Psychiatry & Neurology Neurology
DX: I82.401 Acute embolism and thrombosis of unspecified deep veins of right lower extremity (principal)
CPT/HCPCS: 93971

== ENCOUNTER → 2018-08-06 16:34 | Outpatient (CLI) | payer MEDICAID, SELFPAY ==
[2017-10-23 10:17] VITALS: BMI 46.0
[2018-08-06 18:42] LABS: AST(SGOT) 28 U/L (15-37); Alanine Aminotransfer ALT/SGPT 36 U/L (13-56); Albumin, Serum 3.2 g/dL (3.2-5.0); Alkaline Phosphatase 158 U/L (45-117); Amylase 46 U/L (25-115); Bilirubin, Direct 0.09 mg/dL (0.00-0.30); Globulin 4.3 g/dL (2.2-4.2); Lipase 161 U/L (73-393); Protein, Total 7.5 g/dL (6.4-8.2)
== END ==
PROVIDERS: Referring Provider Urology; Visit Provider Urology
DX: R10.10 Upper abdominal pain, unspecified (principal); R11.0 Nausea
CPT/HCPCS: 36415; 80076; 82150; 83690